=== PATIENT | female | born 1980 | race Caucasian/White ===

== ENCOUNTER 2022-02-02 19:08 | Emergency (ER) | payer BC, SELFPAY ==
[2022-02-02 19:22] VITALS: BP 139/87; PULSE 73; RESP 18; TEMP 36.5; O2SAT 98; BMI 45.4
--- NOTE | 2022-02-02 20:08 | ED_ITS ---
HPI - General Adult General Chief complaint: Chest Pain Stated complaint: Chest tightness and pain Time Seen by Provider: 02/02/22 20:01 History of Present Illness HPI narrative: Patient is a 41-year-old woman who comes in today with 1 day history of cough congestion general malaise and fatigue. She had COVID-19 approximately a month ago and made a full recovery after taking 3 days of Paxlovid. She describes no fevers no chills no hemoptysis no change in her bowel or bladder. Related Data Home Medications Medication Instructions Recorded Confirmed Claritin 02/02/22 pantoprazole 40 mg tablet,delayed mg PO 02/02/22 release Allergies Allergy/AdvReac Type Severity Reaction Status Date / Time barium sulfate Allergy Anaphylaxis Verified 02/02/22 19:27 vicodin Allergy Uncoded 02/02/22 19:27 Review of Systems Status of ROS: Reports: 10 or more systems reviewed and unremarkable except as noted in History and below PFSH PFS Social History Smoking Status: Never smoker How often do you have a drink containing alcohol: 2-4 times a month AUDIT-C Alcohol total score: 2 Non-prescribed substance use: denies use Exam Narrative: Exam Narrative: EXAM GENERAL: Patient appears comfortable and well. EYES: No scleral icterus. ENT: Tympanic membranes and oropharynx normal. THYROID: no thyroid nodules or thyromegaly. LYMPH: No supraclavicular or cervical lymphadenopathy. SKIN: Visible skin seen during exam normal or with benign process only. EXT: No dependent lower extremity pedal edema. HEART: Regular rate and rhythm with no murmurs, rubs, or gallops. LUNGS: Clear to auscultation bilaterally with no crackles or wheezes. ABD: Soft, non tender, non distended. PSYCH: Good eye contact, speech is not pressured. Const: Vital Signs, click to edit/add: Vital Signs - 24 hr 02/02/22 19:22 Temperature 97.7 F Pulse Rate [Left P ulse Oximeter] 73 Respiratory Rate 18 Blood Pressure [Ri ght Forearm] 139/87 Pulse Oximetry 98 Oxygen Delivery Me thod Room Air Course Course Hospital Course: COVID test collected. Will be letting her know those results. Meantime we have diagnosed with bronchitis a plan to discharge her to home with outpatient follow-up on his Z-Perez. Vital Signs Vital signs: Initial Vital Signs Temperature 97.7 F 02/02/22 19:22 Temperature Source Temporal Artery Scan 02/02/22 19:22 Pulse Rate 73 02/02/22 19:22 Respiratory Rate 18 02/02/22 19:22 Blood Pressure 139/87 02/02/22 19:22 Blood Pressure Mean 104 02/02/22 19:22 Blood Pressure Position Sitting 02/02/22 19:22 Pulse Oximetry 98 02/02/22 19:22 Oxygen Delivery Method 02/02/22 19:22 Vital Signs Temperature 97.7 F 02/02/22 19:22 Pulse Rate 73 02/02/22 19:22 Respiratory Rate 18 02/02/22 19:22 Blood Pressure 139/87 02/02/22 19:22 Pulse Oximetry 98 02/02/22 19:22 Oxygen Delivery Method 02/02/22 19:22 Temperature 97.7 F 02/02/22 19:22 Pulse Rate 73 02/02/22 19:22 Respiratory Rate 18 02/02/22 19:22 Blood Pressure 139/87 02/02/22 19:22 Pulse Oximetry 98 02/02/22 19:22 Oxygen Delivery Method 02/02/22 19:22 Medical Decision Making MDM Narrative Medical decision making narrative: Differential diagnosis includes bronchitis versus pneumonia versus COVID-19. I think that is unlikely that she has pneumonia due to her lack of hypoxia and fever. Discharge Plan Discharge Clinical Impression: Bronchitis Patient Disposition: Home, Self-Care Condition: Stable Instructions: Acute Bronchitis (ED) Additional Instructions: Z pack and albuterol as directed Activity Level: No Restrictions Discharge Diet: Regular Prescriptions: No Action pantoprazole 40 mg tablet,delayed release (DR/EC) PO Claritin Stand Alone Forms: Disconnect Info Instructions
[2022-02-02 21:31] LABS: SARS PCR* Negative SARS-CoV-2 (Negative)
== END 2022-02-02 20:41 | disposition home or self-care (01) ==
LOC: ED 20:30
PROVIDERS: Emergency Provider Internal Medicine
DX: J42 Unspecified chronic bronchitis (principal)
CPT/HCPCS: 87635; 99283; 99284

== ENCOUNTER 2022-04-02 10:11 | Day surgery (SDC) | payer BC, SELFPAY ==
[2022-04-02] VITALS (11 sets, daily range): BP systolic 102–126; BP diastolic 65–92; PULSE 63–82; RESP 16; TEMP 36.1–36.6; O2SAT 95–99; BMI 46.0
[2022-04-02] MEDS: OXYMETAZOLINE 0.05% NASAL SPRAY 2 SPRAY NOSTRIL-B (10:31)
[2022-04-02] MEDS: MUPIROCIN 1 GM PACKET 1 APPLIC TOPICAL (10:53)
[2022-04-02] MEDS: SCOPOLAMINE 1 MG/3 DAY PATCH 1 PATCH TRANSDERMA (10:57)
[2022-04-02] MEDS: LACTATED RINGERS 1000 ML 1,000 ML 100 ML IV (11:00)
[2022-04-02] MEDS: SODIUM CHLORIDE 0.9 % (FLUSH) 10 ML SYRINGE IVF (11:38)
[2022-04-02] MEDS: COCAINE HCL 4 % 4 ML SOLUTION NOSTRIL-B (11:54)
[2022-04-02] MEDS: BUPIVACAINE 0.5%/EPINEPHRINE 0.9 MG (30.9 ML) INJECTION (11:54)
--- NOTE | 2022-04-02 12:20 | W.PM.ENTPROC ---
Procedure Note Date of procedure: 04/02/22 Procedure: Preoperative diagnosis nasal obstruction, nasal headache, bilateral middle turbinate joanie bullosa, deviated septum, inferior turbinate hypertrophy. Postoperative diagnosis same Procedure nasal septoplasty, submucous partial resection inferior turbinates, endoscopic partial resection bilateral middle turbinate joanie bullosa. Under general endotracheal anesthesia patient was prepped and draped in usual fashion. The nose was decongested with cocaine pledgets and injected. The septal deflection was left area 4. An incision was made in mucosa anterior to the deflection and mucosa overlying the deflection was elevated. The Trev dissector was used to cut through the cartilage and the mucosa on the opposite side was also elevated. Turbinate scissors was used to cut above and below the deflected area of septum. This piece of septal bone and cartilage was removed trimmed and returned to the intraseptal space. A stab incision was made anterior to the right inferior turbinate a tunnel created with a Trev dissector. The joanie bone was outfractured and a conservative anterior submucous resection performed with a talk I she forceps. The Coblation Wand used for hemostasis and also to cauterize intramurally along the inferior 10%. This was repeated on the left side in identical fashion. The remainder procedure was done with the available assistance of a 0 degree endoscope. The lobe right middle turbinate joanie was incised along its lateral aspect and a tunnel created with a Trev dissector. The joanie bone was then infractured and crushed with the Rich forceps. This was repeated on the left side in identical fashion. A Merocel pack was trimmed lengthwise coated in Bactroban and placed beneath the middle meatus on each side. The patient was extubated the operating room and taken recovery in satisfactory condition. Blood loss was less than 25 mL. There were no complications. Surgeon: Ranjan Paredes MD
--- NOTE | 2022-04-02 12:26 | W.ANESCHARGE ---
Anesthesia Charges Start Date/Time Anesthesia Start Date: 04/02/22 Anesthesia Start Time: 11:46 Stop Date/Time Anesthesia Stop Date: 04/02/22 Anesthesia Stop Time: 12:20 Summary Emergency: No
[2022-04-02] MEDS: ACETAMINOPHEN 325 MG TABLET PO (13:15)
[2022-04-02] MEDS: IBUPROFEN 200 MG TABLET PO (13:15)
[2022-04-02] MEDS: OXYCODONE 5 MG TABLET PO (13:16)
--- NOTE | 2022-04-02 13:30 | W.ANESCHARGE ---
Anesthesia Charges Start Date/Time Anesthesia Start Date: 04/02/22 Anesthesia Start Time: 11:46 Stop Date/Time Anesthesia Stop Date: 04/02/22 Anesthesia Stop Time: 12:20 Summary Emergency: No
== END 2022-04-02 14:05 | disposition home or self-care (01) ==
PROVIDERS: PCP Physician Assistant Medical; Visit Provider Otolaryngology
PROC: (CPT 31231; principal; 2022-04-02 11:15)
DX: J34.2 Deviated nasal septum (principal); J34.3 Hypertrophy of nasal turbinates; R51.9 Headache, unspecified; J34.89 Other specified disorders of nose and nasal sinuses
CPT/HCPCS: 30520; 30140; 31240; 00160; A9270; J0330; J1100; J2250; J2405; J2704; J3010; J7120

== ENCOUNTER 2022-06-02 17:47 | Emergency (ER) | payer BC, SELFPAY ==
[2022-06-02 18:00] VITALS: BP 143/91; PULSE 56; PULSE 58; RESP 20; TEMP 36.5; O2SAT 100; O2SAT 99; BMI 45.4
--- NOTE | 2022-06-02 18:09 | CRLHL7_ITS ---
For Patients: As a result of the Century Cures Act, medical imaging exams and procedure reports are released immediately into your electronic medical record. You may view this report before your referring provider. If you have questions, please contact your health care provider. INDICATION: Shortness of breath. TECHNIQUE: Chest 2 views. COMPARISON: None. FINDINGS: Cardiovascular and mediastinum: Heart size and vasculature are normal in caliber and appearance. Lungs and pleural spaces: The lungs are clear. No pleural effusion or pneumothorax. Bones and soft tissues: No significant findings. IMPRESSION: No evidence of an acute pulmonary process. Dictated by Jp Wells MD @ 06/02/2022 6:44:32 PM (Electronically Signed)
[2022-06-02 18:30] VITALS: BP 150/88; PULSE 58; RESP 20; O2SAT 99
[2022-06-02 18:31] VITALS: BP 150/88; PULSE 56; RESP 20; O2SAT 100
[2022-06-02 18:38] LABS: Lactate* 1.1 mmol/L (0.5-1.9)
[2022-06-02 18:39] LABS: Basophils Absolute Auto 0.02 K/uL (0.00-0.30); Basophils Percent Auto 0.2 % (0.0-3.0); Eosinophils Percent Auto 1.1 % (0.0-7.0); Hematocrit 41.1 % (33.0-51.0); Hemoglobin* 13.9 gm/dL (12.0-16.0); Immature Granulocytes Abs Auto 0.01 K/uL (0.00-0.30); Immature Granulocytes Pct Auto 0.1 %; Lymphocytes Percent Auto 17.3 % (20-44); Mean Corpuscular HGB Conc 34 gm/dL (32-36); Mean Corpuscular Hemoglobin 31 pg (26-34); Mean Corpuscular Volume 92 fL (80-100); Monocytes Percent Auto 4.6 % (0.0-11.0); Neutrophils Percent Auto 76.7 % (42.0-72.0); Platelet Count* 258 K/uL (140-440); RDW Coefficient of Variation % 12.9 % (11.5-15.5); Red Blood Count 4.45 m/uL (4.00-5.20); White Blood Count* 9.41 K/uL (4.50-11.00)
[2022-06-02 18:42] LABS: Slide Review Reflex No
[2022-06-02 18:46] LABS: Appearance Urine Clear (Clear); Bilirubin Urine Negative (Negative); Blood Urine Negative (Negative); Color Urine Yellow (Yellow); Glucose Urine Negative (Negative); Ketones Urine Negative (Negative); Leukocyte Esterase Urine Negative (Negative); Nitrite Urine Negative (Negative); Protein Urine Negative (Negative); Urobilinogen Urine 0.2 (0.2-1.0); pH Urine 7.5 (5.0-8.5)
[2022-06-02 19:00] LABS: Albumin* 4.7 g/dL (3.3-5.0)
[2022-06-02] MEDS: 0.9 % SODIUM CHLORIDE 1000 ml 1,000 ML IV (19:00)
[2022-06-02 19:01] LABS: Chloride* 105 mmol/L (96-114); Potassium* 3.7 mmol/L (3.6-5.1); Sodium* 140 mmol/L (135-149)
[2022-06-02 19:03] LABS: Alanine Aminotransferase* 21 U/L (4-35); Alkaline Phosphatase* 102 U/L (40-150); Aspartate Amino Transferase* 20 U/L (12-35); Bilirubin Direct* 0.2 mg/dL (0.0-0.5); Bilirubin Total* 0.5 mg/dL (0.1-1.5); Total Protein* 7.7 g/dL (6.0-8.3)
[2022-06-02 19:04] LABS: Blood Urea Nitrogen* 11 mg/dL (5-24); Carbon Dioxide* 25 mmol/L (20-32); Creatinine* 0.9 mg/dL (0.5-1.5); Est. Creatinine Clearance* 79.99; Estimated Glomerular Filt Rate 82 ml/min
[2022-06-02 19:05] VITALS: BP 132/82; BP 154/83; BP 157/98; PULSE 54; PULSE 56; PULSE 63
[2022-06-02 19:05] LABS: Calcium* 9.2 mg/dL (8.4-10.6); Glucose* 111 mg/dL (60-115)
[2022-06-02 19:09] LABS: RBC Urine 0-2 (0-2); WBC Urine 0-2 (0-5)
[2022-06-02 19:19] LABS: Troponin I* < 0.01 ng/mL (0.01-0.04)
--- NOTE | 2022-06-02 19:22 | ED.GENADULT ---
HPI - General Adult General Chief complaint: Dizziness/Vertigo Stated complaint: Light headed low bp Time Seen by Provider: 06/02/22 17:58 Source: patient Mode of arrival: ambulatory Limitations: no limitations History of Present Illness HPI narrative: 41-year-old female coming in today complaining of not feeling well. Patient was diagnosed with COVID-19 last month and subsequently developed bronchitis for which she was being treated for. She states that over the last several days she has developed a feeling of lightheadedness that comes and goes throughout the day. She has noticed that this comes when her pulse goes into the upper 50s and lower 60s. She tells me that her regular pulses in the upper 60s to low 70s. These sensations, multiple times per day, lasts several seconds and then disappear. She feels off balance when they occur. They can occur while standing or sitting. The other day she was very concerned that her pulse was too low so she went for a brisk walk in the hallway at work, her pulse went up to 103. Despite her pulse going up at that time she still had several sensations of feeling lightheaded. She wears a Fitbit and closely monitors her pulse at all times. She denies any nausea or vomiting. No chest pain. She denies any shortness of breath, headache, blurry vision or changes in her hearing. She denies any diarrhea. No urinary symptoms such as increased frequency urgency or dysuria. She states that she does not exercise regularly. No changes in her sleeping habits. She denies any vertiginous symptoms. No focal neurologic deficits. No changes in medications. She takes daily pantoprazole and loratadine. Related Data Home Medications Medication Instructions Recorded Confirmed pantoprazole 40 mg tablet,delayed 40 mg PO 02/02/22 05/26/22 release loratadine 10 mg tablet (Claritin) 10 mg PO QDAY 03/31/22 05/26/22 Previous Rx's Medication Instructions Recorded cephalexin 250 mg capsule 250 mg PO TID #15 caps 04/02/22 ondansetron 4 mg disintegrating 4 mg PO Q8H #10 tabs 04/02/22 tablet oxycodone 5 mg tablet 5 mg PO Q4H PRN pain #30 tabs 04/02/22 azithromycin 250 mg tablet See Rx Instructions PO .COMPLEX #6 05/26/22 tabs Allergies Allergy/AdvReac Type Severity Reaction Status Date / Time barium sulfate Allergy Intermediate Anaphylaxis Verified 06/02/22 17:59 hydrocodone Allergy Mild severe Verified 06/02/22 17:59 nausea, vomiting Review of Systems Status of ROS: Reports: 10 or more systems reviewed and unremarkable except as noted in History and below [facility] Medical History Adverse effect of drug Endometriosis (04/12/11) Infection due to severe acute respiratory syndrome coronavirus 2 (SARS-CoV-2) Surgical History History of cholecystectomy (04/12/11) History of total abdominal hysterectomy (04/12/11) Hx of section Hx of shoulder surgery Social History Smoking Status: Never smoker Do you use any of these nicotine containing products: None Second hand tobacco smoke exposure: No How often do you have a drink containing alcohol: 2-4 times a month How many standard drinks containing alcohol do you have on a typical day: 1 or 2 How often do you have six or more drinks on one occasion: Never AUDIT-C Alcohol total score: 2 Non-prescribed substance use: denies use Caffeine: Yes service: No Exam Narrative: Exam Narrative: Obese patient in no acute distress. Alert and oriented. Answers questions appropriately. Mood and affect are appropriate. Thoughts are goal oriented and rational. No tangential or magical thinking noted. Patient speaks in full sentences without needing to catch her breath. Patient is clearly very anxious about her symptoms. HEENT: Normocephalic atraumatic. Pupils are equally round reactive to light. Extraocular muscles are intact. Conjunctivae are moist without any icterus noted. Moist mucous membranes. Posterior pharynx is normal. Neck is soft without any lymphadenopathy or thyromegaly. No masses are appreciated. Cardiovascular: Heart is regular rate and rhythm S1 and S2 are present without any murmurs. Lungs: Clear to auscultation bilaterally no wheezes rhonchi or rales are appreciated. Patient takes deep breaths without any discomfort. Abdomen: Soft and nontender nondistended with normal bowel sounds. No guarding or rebound. No masses or organomegaly appreciated. Extremities: Bilateral lower extremities are without edema. Normal DP and PT pulses. Skin: Well perfused without any obvious rashes. Const: Vital Signs, click to edit/add: Vital Signs - 24 hr 06/02/22 18:00 06/02/22 18:00 06/02/22 18:31 Temperature 97.7 F Pulse Rate [Pulse Oximeter] 56 L 56 L Pulse Rate [orthos tatic lying Pulse Oximeter] Pulse Rate [orthos tatic sitting Puls e Oximeter] Pulse Rate [orthos tatic standing Pul se Oximeter] Respiratory Rate 20 20 Blood Pressure [Le ft Upper Arm] 150/88 H Blood Pressure [or thostatic lying Le ft Arm] Blood Pressure [or thostatic sitting Left Arm] Blood Pressure [or thostatic standing Left Arm] Pulse Oximetry 100 100 100 Oxygen Delivery Me thod Room Air Room Air 06/02/22 18:00 06/02/22 19:05 06/02/22 18:30 Temperature Pulse Rate [Pulse Oximeter] 58 L 58 L Pulse Rate [orthos tatic lying Pulse Oximeter] 56 L Pulse Rate [orthos tatic sitting Puls e Oximeter] 54 L Pulse Rate [orthos tatic standing Pul se Oximeter] 63 Respiratory Rate 20 Blood Pressure [Le ft Upper Arm] 143/91 H 150/88 H Blood Pressure [or thostatic lying Le ft Arm] 154/83 H Blood Pressure [or thostatic sitting Left Arm] 157/98 H Blood Pressure [or thostatic standing Left Arm] 132/82 Pulse Oximetry 99 99 Oxygen Delivery Me thod Room Air Course Course Hospital Course: EKG, read by me, shows sinus bradycardia with a pulse of 58. IV was inserted labs and were drawn. Workup was entirely unremarkable. While she was here patient's pulse ranged from 45-60-she was asymptomatic while she was here. No evidence of orthostatic hypotension. Vital Signs Vital signs: Initial Vital Signs Temperature 97.7 F 06/02/22 18:00 Temperature Source Temporal Artery Scan 06/02/22 18:00 Pulse Rate 56 L 06/02/22 18:00 Pulse Rhythm 06/02/22 18:00 Respiratory Rate 20 06/02/22 18:00 Respiratory Depth Normal 06/02/22 18:00 Blood Pressure 143/91 H 06/02/22 18:00 Blood Pressure Mean 108 06/02/22 18:00 Blood Pressure Position Supine 06/02/22 18:00 Pulse Oximetry 100 12/07/22 18:00 Oxygen Delivery Method 06/02/22 18:00 Vital Signs Temperature 97.7 F 06/02/22 18:00 Pulse Rate 56 L 06/02/22 18:00 Respiratory Rate 20 06/02/22 18:00 Blood Pressure 143/91 H 06/02/22 18:00 Pulse Oximetry 100 06/02/22 18:00 Oxygen Delivery Method 06/02/22 18:00 Temperature 97.7 F 06/02/22 18:00 Pulse Rate 56 L 06/02/22 19:05 Respiratory Rate 20 06/02/22 18:31 Blood Pressure 154/83 H 06/02/22 19:05 Pulse Oximetry 100 06/02/22 18:31 Oxygen Delivery Method 06/02/22 18:31 Medical Decision Making MDM Narrative Medical decision making narrative: 41-year-old female with episodes of brief dizziness calmer episodes of bradycardia. At this point I do not recommend further workup in the emergency room. I do recommend she follow up with her primary care provider to discuss next steps if any. We discussed the possibility of a Holter monitor, again I do not feel this is an emergency at this time. I do recommend she return to the ER if symptoms get worse. Patient was agreeable with this and had no other questions. Lab Data Lab results reviewed: Yes I reviewed the patient's lab results Labs: Lab Results 06/02/22 06/02/22 06/02/22 Range/Units 18:10 18:22 18:22 WBC 9.41 (4.50-11.00) K/uL RBC 4.45 (4.00-5.20) m/uL Hgb 13.9 (12.0-16.0) gm/dL Hct 41.1 (33.0-51.0) % MCV 92 (80-100) fL MCH 31 (26-34) pg MCHC 34 (32-36) gm/dL RDW Coeff of Kylah 12.9 (11.5-15.5) % Plt Count 258 (140-440) K/uL Neut % (Auto) 76.7 H (42.0-72.0) % Lymph % (Auto) 17.3 L (20-44) % [place] % (Auto) 4.6 (0.0-11.0) % Eos % (Auto) 1.1 (0.0-7.0) % Baso % (Auto) 0.2 (0.0-3.0) % Neut # (Auto) 7.20 H (1.7-7.0) K/uL Lymph # (Auto) 1.60 (0.90-2.90) K/uL [place] # (Auto) 0.40 (0.00-0.90) K/UL Eos # (Auto) 0.10 (0.00-0.50) K/uL Baso # (Auto) 0.02 (0.00-0.30) K/uL Abs Immat Gran (auto) 0.01 (0.00-0.30) K/uL Imm/Tot Granulo (auto) 0.1 % D-Dimer Quant (PE/DVT) (0.00-0.50) ug/ml Sodium 140 (135-149) mmol/L Potassium 3.7 (3.6-5.1) mmol/L Chloride 105 (96-114) mmol/L Carbon Dioxide 25 (20-32) mmol/L BUN 11 (5-24) mg/dL Creatinine 0.9 (0.5-1.5) mg/dL Estimated Creat Clear 79.99 Estimated GFR 82 ml/min Glucose 111 (60-115) mg/dL Lactate (0.5-1.9) mmol/L Calcium 9.2 (8.4-10.6) mg/dL Total Bilirubin (0.1-1.5) mg/dL Direct Bilirubin (0.0-0.5) mg/dL AST (12-35) U/L ALT (4-35) U/L Alkaline Phosphatase (40-150) U/L Troponin I (0.01-0.04) ng/mL C-Reactive Protein (0.5-1.0) mg/dL Total Protein (6.0-8.3) g/dL Albumin (3.3-5.0) g/dL Urine Color Yellow (Yellow) Urine Appearance Clear (Clear) Urine pH 7.5 (5.0-8.5) Ur Specific [place] 1.010 (1.000-1.030) Urine Protein Negative (Negative) Urine Glucose (UA) Negative (Negative) Urine Ketones Negative (Negative) Urine Blood Negative (Negative) Urine Nitrite Negative (Negative) Urine Bilirubin Negative (Negative) Urine Urobilinogen 0.2 (0.2-1.0) Ur Leukocyte Esterase Negative (Negative) Urine RBC 0-2 (0-2) Urine WBC 0-2 (0-5) Ur Squamous Epith Cells None (None-Few) Urine Bacteria None (None) 06/02/22 06/02/22 06/02/22 Range/Units 18:22 18:22 18:22 WBC (4.50-11.00) K/uL RBC (4.00-5.20) m/uL Hgb (12.0-16.0) gm/dL Hct (33.0-51.0) % MCV (80-100) fL MCH (26-34) pg MCHC (32-36) gm/dL RDW Coeff of Kylah (11.5-15.5) % Plt Count (140-440) K/uL Neut % (Auto) (42.0-72.0) % Lymph % (Auto) (20-44) % [place] % (Auto) (0.0-11.0) % Eos % (Auto) (0.0-7.0) % Baso % (Auto) (0.0-3.0) % Neut # (Auto) (1.7-7.0) K/uL Lymph # (Auto) (0.90-2.90) K/uL [place] # (Auto) (0.00-0.90) K/UL Eos # (Auto) (0.00-0.50) K/uL Baso # (Auto) (0.00-0.30) K/uL Abs Immat Gran (auto) (0.00-0.30) K/uL Imm/Tot Granulo (auto) % D-Dimer Quant (PE/DVT) < 0.27 (0.00-0.50) ug/ml Sodium (135-149) mmol/L Potassium (3.6-5.1) mmol/L Chloride (96-114) mmol/L Carbon Dioxide (20-32) mmol/L BUN (5-24) mg/dL Creatinine (0.5-1.5) mg/dL Estimated Creat Clear Estimated GFR ml/min Glucose (60-115) mg/dL Lactate 1.1 (0.5-1.9) mmol/L Calcium (8.4-10.6) mg/dL Total Bilirubin 0.5 (0.1-1.5) mg/dL Direct Bilirubin 0.2 (0.0-0.5) mg/dL AST 20 (12-35) U/L ALT 21 (4-35) U/L Alkaline Phosphatase 102 (40-150) U/L Troponin I < 0.01 L (0.01-0.04) ng/mL C-Reactive Protein 1.0 (0.5-1.0) mg/dL Total Protein 7.7 (6.0-8.3) g/dL Albumin 4.7 (3.3-5.0) g/dL Urine Color (Yellow) Urine Appearance (Clear) Urine pH (5.0-8.5) Ur Specific [place] (1.000-1.030) Urine Protein (Negative) Urine Glucose (UA) (Negative) Urine Ketones (Negative) Urine Blood (Negative) Urine Nitrite (Negative) Urine Bilirubin (Negative) Urine Urobilinogen (0.2-1.0) Ur Leukocyte Esterase (Negative) Urine RBC (0-2) Urine WBC (0-5) Ur Squamous Epith Cells (None-Few) Urine Bacteria (None) Imaging Data Chest x-ray: Attestation: I have reviewed the pertinent imaging results. Radiologist's impression: Chest 2 views. COMPARISON: None. FINDINGS: Cardiovascular and mediastinum:? Heart size and vasculature are normal in caliber and appearance.? Lungs and pleural spaces:? The lungs are clear. No pleural effusion or pneumothorax. Bones and soft tissues:? No significant findings. IMPRESSION: No evidence of an acute pulmonary process. ECG Data Attestation: I personally reviewed and interpreted this ECG as follows: (Sinus bradycardia, pulse 58) Discharge Plan Discharge Clinical Impression: Dizziness, Bradycardia Patient Disposition: Home, Self-Care Condition: Stable Additional Instructions: No life-threatening conditions or found on your workup today. I do recommend you follow-up with your primary care provider to discuss whether or not you should have a Holter monitor (heart monitor) placed. Return to the ER if you feel like things are getting worse. Prescriptions: No Action loratadine [Claritin] 10 mg tablet 10 mg PO QDAY azithromycin 250 mg tablet See Rx Instructions PO .COMPLEX Qty: 6 0RF Rx Instructions: For 250 mg dose pack: take 500 mg today (day 1), then 250 mg for 4 days (days 2-5) PO pantoprazole 40 mg tablet,delayed release (DR/EC) 40 mg PO cephalexin 250 mg capsule 250 mg PO TID Qty: 15 0RF ondansetron 4 mg tablet,disintegrating 4 mg PO Q8H Qty: 10 0RF oxycodone 5 mg tablet 5 mg PO Q4H PRN (Reason: pain) Qty: 30 0RF Follow Up/Referrals: Lety Gaines PA-C [Primary Care Provider] - Stand Alone Forms: [employer]ealth Info Instructions
[2022-06-02 19:27] LABS: D Dimer Quantitative* < 0.27 ug/ml (0.00-0.50)
[2022-06-02 20:10] VITALS: BP 147/91; PULSE 50; RESP 16; O2SAT 99
[2022-06-02 20:58] LABS: Thyroid Stimulating Hormone* 0.826 uIU/mL (0.270-4.20)
== END 2022-06-02 20:20 | disposition home or self-care (01) ==
PROVIDERS: Emergency Provider Family Medicine; PCP Physician Assistant Medical
DX: R42 Dizziness and giddiness (principal); R00.1 Bradycardia, unspecified
CPT/HCPCS: 36415; 71046; 80048; 80076; 81001; 83605; 84443; 84484; 85025; 85379; 86140; 87086; 93005; 94761; 96360; 99284; J7030

== ENCOUNTER 2022-06-16 22:34 | Emergency (ER) | payer BC, SELFPAY ==
[2022-06-16] VITALS (11 sets, daily range): BP systolic 124–179; BP diastolic 85–94; PULSE 76–89; TEMP 35.6; O2SAT 97–99; BMI 45.9
[2022-06-16] MEDS: 0.9 % SODIUM CHLORIDE 1000 ml 1,000 ML IV (23:45)
[2022-06-16 23:46] LABS: Basophils Absolute Auto 0.03 K/uL (0.00-0.30); Basophils Percent Auto 0.3 % (0.0-3.0); Eosinophils Absolute Auto 0.29 K/uL (0.00-0.50); Hematocrit 41.3 % (33.0-51.0); Hemoglobin* 13.6 gm/dL (12.0-16.0); Immature Granulocytes Abs Auto 0.01 K/uL (0.00-0.30); Immature Granulocytes Pct Auto 0.1 %; Lymphocytes Percent Auto 15.1 % (20-44); Mean Corpuscular HGB Conc 33 gm/dL (32-36); Mean Corpuscular Hemoglobin 31 pg (26-34); Mean Corpuscular Volume 94 fL (80-100); Monocytes Percent Auto 5.3 % (0.0-11.0); Neutrophils Percent Auto 76.2 % (42.0-72.0); Platelet Count* 272 K/uL (140-440); RDW Coefficient of Variation % 12.9 % (11.5-15.5); Red Blood Count 4.38 m/uL (4.00-5.20); White Blood Count* 9.64 K/uL (4.50-11.00)
[2022-06-16 23:49] LABS: Appearance Urine Clear (Clear); Bilirubin Urine Negative (Negative); Blood Urine Negative (Negative); Color Urine Yellow (Yellow); Glucose Urine Negative (Negative); Ketones Urine Negative (Negative); Leukocyte Esterase Urine Negative (Negative); Nitrite Urine Negative (Negative); Protein Urine Negative (Negative); Slide Review Reflex No; Urobilinogen Urine 0.2 (0.2-1.0)
[2022-06-16 23:57] LABS: Other Sediment Urine YEAST; RBC Urine 0-2 (0-2); Squamous Epithelial Cell Urine Moderate (None-Few); WBC Urine 0-2 (0-5)
[2022-06-16 23:58] LABS: Albumin* 4.5 g/dL (3.3-5.0)
[2022-06-16 23:59] LABS: Chloride* 105 mmol/L (96-114); Potassium* 3.7 mmol/L (3.6-5.1); Sodium* 138 mmol/L (135-149)
[2022-06-17] VITALS: PULSE 70; O2SAT 97
[2022-06-17 00:01] VITALS: BP 124/85; PULSE 82; O2SAT 96
[2022-06-17 00:01] LABS: Troponin, Point-of-Care* 0.07 ng/ml (0.01-0.04)
[2022-06-17 00:02] VITALS: PULSE 68; O2SAT 99
[2022-06-17 00:04] LABS: Alanine Aminotransferase* 20 U/L (4-35); Alkaline Phosphatase* 97 U/L (40-150); Aspartate Amino Transferase* 19 U/L (12-35); Bilirubin Direct* 0.2 mg/dL (0.0-0.5); Bilirubin Total* 0.3 mg/dL (0.1-1.5); Blood Urea Nitrogen* 15 mg/dL (5-24); Calcium* 8.8 mg/dL (8.4-10.6); Carbon Dioxide* 26 mmol/L (20-32); Glucose* 132 mg/dL (60-115); Total Protein* 7.4 g/dL (6.0-8.3)
[2022-06-17 00:15] LABS: Creatinine* 0.8 mg/dL (0.5-1.5); D Dimer Quantitative* < 0.27 ug/ml (0.00-0.50); Est. Creatinine Clearance* 89.08; Estimated Glomerular Filt Rate 94 ml/min; Ethanol* < 0.01 % (0.01-0.03); NT Pro B Type NatriureticPept* < 20 pg/mL; Troponin I* < 0.01 ng/mL (0.01-0.04)
[2022-06-17 00:26] VITALS: PULSE 71; O2SAT 98
[2022-06-17 00:30] VITALS: PULSE 67; O2SAT 98
[2022-06-17 00:31] VITALS: BP 141/96; PULSE 71; O2SAT 98
[2022-06-17] MEDS: LORazepam 2 MG/ML inj 0.5 MG IVP (00:37)
--- NOTE | 2022-06-17 09:29 | ED_ITS ---
HPI - General Adult General Chief complaint: High Blood Pressure Stated complaint: blood pressure is 157/102, pain in left arm Time Seen by Provider: 06/16/22 23:00 History of Present Illness HPI narrative: 42-year-old woman presenting to the emergency department with concern of high blood pressure. Accompanied by significant other. Apparently periodically it has been elevated but no treatment initiated. Today was having some chest discomfort and recently also couple episodes of 20 minutes of pain inside of her left arm. Acknowledges may have been worsened by blood pressure checks. Was feeling like her heart was beating really fast or hard. While sitting in the waiting room today had transiently odd vision. recently being evaluated for bradycardia with a Holter monitor/ ZIO patch which has been removed after what sounds like 48 hours of monitoring. just generally feeling unwell. Not really short of breath. Was exercising on treadmill today. subsequently was also experiencing a lot of belching which isn't necessarily unusual. Feeling lightheaded. No known cardiovascular disease. Has struggled a little since having had COVID in October of this year; she describes waves of like cool menthol through her body periodically. Gestures from her head down. Does have a stress test scheduled for the week of June. Related Data Home Medications Medication Instructions Recorded Confirmed pantoprazole 40 mg tablet,delayed 40 mg PO 02/02/22 06/14/22 release cetirizine 10 mg capsule (Zyrtec) 40 mg PO QDAY PRN 06/14/22 06/14/22 Allergies Allergy/AdvReac Type Severity Reaction Status Date / Time barium sulfate Allergy Intermediate Anaphylaxis Verified 06/14/22 07:55 hydrocodone Allergy Mild severe Verified 06/14/22 07:55 nausea, vomiting Review of Systems Status of ROS: Reports: 10 or more systems reviewed and unremarkable except as noted in History and below [facility] Medical History Adverse effect of drug Chest pain Endometriosis (04/12/11) Infection due to severe acute respiratory syndrome coronavirus 2 (SARS-CoV-2) Surgical History History of cholecystectomy (04/12/11) History of total abdominal hysterectomy (04/12/11) Hx of section Hx of shoulder surgery Social History Smoking Status: Never smoker Do you use any of these nicotine containing products: None Second hand tobacco smoke exposure: No How often do you have a drink containing alcohol: 2-4 times a month How many standard drinks containing alcohol do you have on a typical day: 1 or 2 How often do you have six or more drinks on one occasion: Never AUDIT-C Alcohol total score: 2 Non-prescribed substance use: denies use Caffeine: Yes service: No Exam Narrative: Exam Narrative: Pleasant. Appears to be mildly anxious. Breathing easily. Speaking easily. Cranial nerves 2-12 look to be intact. Lungs are clear cardiovascular with regular rate and rhythm no murmur rub or gallop identified. Abdomen is overweight soft nontender. She is moving all extremities without difficulty. Well perfused peripherally. Oropharynx is moist. There is a little discomfort to palpation in the mid anterior chest midsternal area. Had describe some discomfort in the chest prior under the left breast. No reproducible tenderness here now. Extremities are without edema. Const: Vital Signs, click to edit/add: Vital Signs - 24 hr 06/16/22 22:40 06/16/22 23:37 06/16/22 23:22 Temperature 96.0 F L Pulse Rate Pulse Rate [Left P ulse Oximeter] 86 Pulse Rate [orthos tatic lying Right] 78 Pulse Rate [orthos tatic sitting Righ t Pulse Oximeter] 76 Pulse Rate [orthos tatic standing Rig ht Pulse Oximeter] 88 Blood Pressure Blood Pressure [Ri ght Upper Arm] 179/87 H Blood Pressure [or thostatic lying Le ft Arm] 125/85 Blood Pressure [or thostatic sitting Left Arm] 130/86 Blood Pressure [or thostatic standing Left Arm] 127/92 H Pulse Oximetry 99 97 Oxygen Delivery Me thod Room Air 06/16/22 23:07 06/16/22 23:11 06/16/22 23:12 Temperature Pulse Rate 85 89 85 Pulse Rate [Left P ulse Oximeter] Pulse Rate [orthos tatic lying Right] Pulse Rate [orthos tatic sitting Righ t Pulse Oximeter] Pulse Rate [orthos tatic standing Rig ht Pulse Oximeter] Blood Pressure 145/94 H Blood Pressure [Ri ght Upper Arm] Blood Pressure [or thostatic lying Le ft Arm] Blood Pressure [or thostatic sitting Left Arm] Blood Pressure [or thostatic standing Left Arm] Pulse Oximetry 98 97 99 Oxygen Delivery Me thod 06/16/22 23:15 06/16/22 23:30 06/16/22 23:31 Temperature Pulse Rate 86 78 82 Pulse Rate [Left P ulse Oximeter] Pulse Rate [orthos tatic lying Right] Pulse Rate [orthos tatic sitting Righ t Pulse Oximeter] Pulse Rate [orthos tatic standing Rig ht Pulse Oximeter] Blood Pressure 124/94 H Blood Pressure [Ri ght Upper Arm] Blood Pressure [or thostatic lying Le ft Arm] Blood Pressure [or thostatic sitting Left Arm] Blood Pressure [or thostatic standing Left Arm] Pulse Oximetry 98 98 97 Oxygen Delivery Me thod 06/16/22 23:37 06/16/22 23:40 06/16/22 23:45 Temperature Pulse Rate 81 89 77 Pulse Rate [Left P ulse Oximeter] Pulse Rate [orthos tatic lying Right] Pulse Rate [orthos tatic sitting Righ t Pulse Oximeter] Pulse Rate [orthos tatic standing Rig ht Pulse Oximeter] Blood Pressure 125/85 127/92 H Blood Pressure [Ri ght Upper Arm] Blood Pressure [or thostatic lying Le ft Arm] Blood Pressure [or thostatic sitting Left Arm] Blood Pressure [or thostatic standing Left Arm] Pulse Oximetry 97 97 98 Oxygen Delivery Me thod 06/17/22 00:00 06/17/22 00:01 06/17/22 00:02 Temperature Pulse Rate 70 82 68 Pulse Rate [Left P ulse Oximeter] Pulse Rate [orthos tatic lying Right] Pulse Rate [orthos tatic sitting Righ t Pulse Oximeter] Pulse Rate [orthos tatic standing Rig ht Pulse Oximeter] Blood Pressure 124/85 Blood Pressure [Ri ght Upper Arm] Blood Pressure [or thostatic lying Le ft Arm] Blood Pressure [or thostatic sitting Left Arm] Blood Pressure [or thostatic standing Left Arm] Pulse Oximetry 97 96 99 Oxygen Delivery Me thod 06/17/22 00:26 06/17/22 00:30 06/17/22 00:31 Temperature Pulse Rate 71 67 71 Pulse Rate [Left P ulse Oximeter] Pulse Rate [orthos tatic lying Right] Pulse Rate [orthos tatic sitting Righ t Pulse Oximeter] Pulse Rate [orthos tatic standing Rig ht Pulse Oximeter] Blood Pressure 141/96 H Blood Pressure [Ri ght Upper Arm] Blood Pressure [or thostatic lying Le ft Arm] Blood Pressure [or thostatic sitting Left Arm] Blood Pressure [or thostatic standing Left Arm] Pulse Oximetry 98 98 98 Oxygen Delivery Me thod Course Vital Signs Vital signs: Initial Vital Signs Temperature 96.0 F L 06/16/22 22:40 Temperature Source Temporal Artery Scan 06/16/22 22:40 Pulse Rate 86 06/16/22 22:40 Blood Pressure 179/87 H 06/16/22 22:40 Blood Pressure Mean 117 06/16/22 22:40 Blood Pressure Position Sitting 06/16/22 22:40 Pulse Oximetry 99 06/16/22 22:40 Oxygen Delivery Method 06/16/22 22:40 Vital Signs Temperature 96.0 F L 06/16/22 22:40 Pulse Rate 86 06/16/22 22:40 Blood Pressure 179/87 H 06/16/22 22:40 Pulse Oximetry 99 06/16/22 22:40 Oxygen Delivery Method 06/16/22 22:40 Temperature 96.0 F L 06/16/22 22:40 Pulse Rate 71 06/17/22 00:31 Blood Pressure 141/96 H 06/17/22 00:31 Pulse Oximetry 98 06/17/22 00:31 Oxygen Delivery Method 06/16/22 22:40 Medical Decision Making MDM Narrative Medical decision making narrative: We do check orthostatics which she admits does not exacerbate her symptoms. They are objectively normal as well. I discussed that I think the workup will be essentially negative From a cardiac perspective. I do think though some value from monitoring on hospital monitor. After discussion though I also believe that there will be some therapeutic value to laboratory testing I did does not sound as though extensive has been done.. during orthostatics blood pressures were 120s over 80s. I think this is overall reassuring. did receive a L of normal saline. Reviewing normal labs do offer a dose of lorazepam for what I perceive as some smoldering anxiety. This does seem to help Ms. Choi's remaining symptoms Lab Data Lab results reviewed: Yes I reviewed the patient's lab results Labs: Lab Results 06/16/22 06/16/22 06/16/22 Range/Units 23:22 23:35 23:35 WBC 9.64 (4.50-11.00) K/uL RBC 4.38 (4.00-5.20) m/uL Hgb 13.6 (12.0-16.0) gm/dL Hct 41.3 (33.0-51.0) % MCV 94 (80-100) fL MCH 31 (26-34) pg MCHC 33 (32-36) gm/dL RDW Coeff of Kylah 12.9 (11.5-15.5) % Plt Count 272 (140-440) K/uL Neut % (Auto) 76.2 H (42.0-72.0) % Lymph % (Auto) 15.1 L (20-44) % [place] % (Auto) 5.3 (0.0-11.0) % Eos % (Auto) 3.0 (0.0-7.0) % Baso % (Auto) 0.3 (0.0-3.0) % Neut # (Auto) 7.30 H (1.7-7.0) K/uL Lymph # (Auto) 1.50 (0.90-2.90) K/uL [place] # (Auto) 0.50 (0.00-0.90) K/UL Eos # (Auto) 0.29 (0.00-0.50) K/uL Baso # (Auto) 0.03 (0.00-0.30) K/uL D-Dimer Quant (PE/DVT) < 0.27 (0.00-0.50) ug/ml Sodium (135-149) mmol/L Potassium (3.6-5.1) mmol/L Chloride (96-114) mmol/L Carbon Dioxide (20-32) mmol/L BUN (5-24) mg/dL Creatinine (0.5-1.5) mg/dL Estimated Creat Clear Estimated GFR ml/min Glucose (60-115) mg/dL Calcium (8.4-10.6) mg/dL Total Bilirubin (0.1-1.5) mg/dL Direct Bilirubin (0.0-0.5) mg/dL AST (12-35) U/L ALT (4-35) U/L Alkaline Phosphatase (40-150) U/L Troponin I (0.01-0.04) ng/mL NT-Pro-B Natriuret Pep pg/mL Total Protein (6.0-8.3) g/dL Albumin (3.3-5.0) g/dL Urine Color (Yellow) Urine Appearance (Clear) Urine pH (5.0-8.5) Ur Specific [place] (1.000-1.030) Urine Protein (Negative) Urine Glucose (UA) (Negative) Urine Ketones (Negative) Urine Blood (Negative) Urine Nitrite (Negative) Urine Bilirubin (Negative) Urine Urobilinogen (0.2-1.0) Ur Leukocyte Esterase (Negative) Urine RBC (0-2) Urine WBC (0-5) Ur Squamous Epith Cells (None-Few) Other Sediment (None) Urine Bacteria (None) Ethyl Alcohol (0.01-0.03) % POC Troponin I 0.07 H (0.01-0.04) ng/ml 06/16/22 06/16/22 06/16/22 Range/Units 23:35 23:35 23:35 WBC (4.50-11.00) K/uL RBC (4.00-5.20) m/uL Hgb (12.0-16.0) gm/dL Hct (33.0-51.0) % MCV (80-100) fL MCH (26-34) pg MCHC (32-36) gm/dL RDW Coeff of Kylah (11.5-15.5) % Plt Count (140-440) K/uL Neut % (Auto) (42.0-72.0) % Lymph % (Auto) (20-44) % [place] % (Auto) (0.0-11.0) % Eos % (Auto) (0.0-7.0) % Baso % (Auto) (0.0-3.0) % Neut # (Auto) (1.7-7.0) K/uL Lymph # (Auto) (0.90-2.90) K/uL [place] # (Auto) (0.00-0.90) K/UL Eos # (Auto) (0.00-0.50) K/uL Baso # (Auto) (0.00-0.30) K/uL D-Dimer Quant (PE/DVT) (0.00-0.50) ug/ml Sodium 138 (135-149) mmol/L Potassium 3.7 (3.6-5.1) mmol/L Chloride 105 (96-114) mmol/L Carbon Dioxide 26 (20-32) mmol/L BUN 15 (5-24) mg/dL Creatinine 0.8 (0.5-1.5) mg/dL Estimated Creat Clear 89.08 Estimated GFR 94 ml/min Glucose 132 H (60-115) mg/dL Calcium 8.8 (8.4-10.6) mg/dL Total Bilirubin 0.3 (0.1-1.5) mg/dL Direct Bilirubin 0.2 (0.0-0.5) mg/dL AST 19 (12-35) U/L ALT 20 (4-35) U/L Alkaline Phosphatase 97 (40-150) U/L Troponin I < 0.01 L (0.01-0.04) ng/mL NT-Pro-B Natriuret Pep < 20 pg/mL Total Protein 7.4 (6.0-8.3) g/dL Albumin 4.5 (3.3-5.0) g/dL Urine Color Yellow (Yellow) Urine Appearance Clear (Clear) Urine pH 7.0 (5.0-8.5) Ur Specific [place] 1.010 (1.000-1.030) Urine Protein Negative (Negative) Urine Glucose (UA) Negative (Negative) Urine Ketones Negative (Negative) Urine Blood Negative (Negative) Urine Nitrite Negative (Negative) Urine Bilirubin Negative (Negative) Urine Urobilinogen 0.2 (0.2-1.0) Ur Leukocyte Esterase Negative (Negative) Urine RBC 0-2 (0-2) Urine WBC 0-2 (0-5) Ur Squamous Epith Cells Moderate A (None-Few) Other Sediment YEAST (None) Urine Bacteria None (None) Ethyl Alcohol < 0.01 L (0.01-0.03) % POC Troponin I (0.01-0.04) ng/ml Discharge Plan Discharge Clinical Impression: Elevated blood pressure reading, Anxiety, Atypical chest pain Patient Disposition: Home w/ Parent or Adult Condition: Improved Instructions: Anxiety (ED) Additional Instructions: I am overall reassured. I hope you can manage a good night's sleep. follow-up for stress test/stress echo as planned. Activity Level: No Restrictions Discharge Diet: Regular Prescriptions: No Action Zyrtec 10 mg capsule 40 mg PO QDAY PRN pantoprazole 40 mg tablet,delayed release (DR/EC) 40 mg PO Follow Up/Referrals: Lety Gaines PA-C [Primary Care Provider] - Stand Alone Forms: [employer] Info Instructions
== END 2022-06-17 01:51 | disposition home or self-care (01) ==
PROVIDERS: Emergency Provider Family Medicine; PCP Physician Assistant Medical
DX: R03.0 Elevated blood-pressure reading, without diagnosis of hypertension (principal); F41.9 Anxiety disorder, unspecified
CPT/HCPCS: 36415; 80048; 80076; 81001; 82077; 83880; 84484; 85025; 85379; 93005; 94761; 96374; 99283; 99284; J2060; J7030

== ENCOUNTER 2022-07-01 14:44 | Outpatient (CLI) | payer BC, SELFPAY ==
[2022-07-01 16:08] VITALS: BP 144/100; PULSE 92; RESP 18
[2022-07-01] MEDS: PERFLUTREN LIPID MICROSPHERES 2 ML VIAL IV (16:09)
--- NOTE | 2022-07-01 19:57 | P.STN_ITS ---
Stress Test Note Date Time Seen by Provider: 15:55 Date Seen: 07/01/22 Date of test: 07/01/22 Providers Referring provider: Lety Gaines Primary care provider: Lety Gaines Stress test physician: Anabelle Morelos Stress Test Note Stress test ordered: Stress Echo Indication for test: Chest pain Stress test medicine: [facility] Results discussion: Resting EKG: Shows sinus rhythm, 80 beats per minute, some artifact noted Resting blood pressure 142/80 Stress test: Patient was exercised on the treadmill following standard Ryan protocol. Patient was able to exercise 6 minutes 47 seconds giving her rate pressure product of 16,728, note blood pressure was not able to be heard during the stress test. Thus, systolic blood pressure of 160 for was used at the end of the stress test. She achieved a maximum heart rate of 156 beats per minute which was 103% of a calculated target heart rate of 151. Test was terminated as she had reached her target heart rate, was becoming dyspneic at this level of exercise and was having calf fatigue with the incline of the treadmill. She had no chest pain. There are no arrhythmias, no significant ST segment changes. Echo images pending to couple this for a full formal diagnostic report. Patient discharged in stable condition. Impression: Subjectively negative, objectively negative EKG portion of this treadmill exercise stress echo. Follow up suggested: Await her primary provider to get the full formal report and contact her.
== END 2022-07-01 14:45 | disposition home or self-care (01) ==
LOC: STRESS 14:44
PROVIDERS: PCP Physician Assistant Medical; Visit Provider Physician Assistant Medical
DX: R07.9 Chest pain, unspecified (principal)
CPT/HCPCS: 93016; 93325; 93351; Q9957

== ENCOUNTER 2023-07-11 08:29 | Outpatient (CLI) | payer BC, SELFPAY | END 2023-07-11 08:30 | disposition home or self-care (01) | PROVIDERS: PCP Physician Assistant Medical; Visit Provider Physician Assistant Medical | DX: I10 Essential (primary) hypertension (principal); Z13.220 Encounter for screening for lipoid disorders; Z13.29 Encounter for screening for other suspected endocrine disorder | CPT/HCPCS: 80053; 80061; 84443 ==

== ENCOUNTER 2024-07-19 15:25 | Outpatient (CLI) | payer BC, SELFPAY | END 2024-07-19 15:26 | disposition home or self-care (01) | PROVIDERS: PCP Physician Assistant Medical; Visit Provider Physician Assistant Medical | DX: I10 Essential (primary) hypertension (principal); R53.83 Other fatigue; Z13.220 Encounter for screening for lipoid disorders; Z13.21 Encounter for screening for nutritional disorder; Z13.29 Encounter for screening for other suspected endocrine disorder | CPT/HCPCS: 80053; 80061; 82306; 82607; 84443 ==

== ENCOUNTER 2024-08-01 14:18 | Outpatient (CLI) | payer BC, SELFPAY | END 2024-08-01 14:19 | disposition home or self-care (01) | PROVIDERS: PCP Physician Assistant Medical; Visit Provider Otolaryngology | DX: J34.89 Other specified disorders of nose and nasal sinuses (principal); E55.9 Vitamin D deficiency, unspecified; E66.9 Obesity, unspecified; R68.2 Dry mouth, unspecified | CPT/HCPCS: 86038; 86235; 86431 ==

== ENCOUNTER 2024-08-10 10:45 | Outpatient (CLI) | payer BC, SELFPAY | END 2024-08-10 10:46 | disposition home or self-care (01) | LOC: CT 10:45 | PROVIDERS: PCP Physician Assistant Medical; Visit Provider Otolaryngology | DX: J32.9 Chronic sinusitis, unspecified (principal); K11.1 Hypertrophy of salivary gland | CPT/HCPCS: 70486; 70491; Q9967 ==

== ENCOUNTER 2024-08-11 22:53 | Emergency (ER) | payer BC, SELFPAY ==
--- OUTSIDE RECORDS SUMMARY | 2024-08-11 22:55 | XMS_ITS | Encounter Summary ---
Author Organization [facility] Address [address] [facility] [place] [address] Care Team Providers Care Associate Professor Of Biology Name Role Phone Nona David PA-C Primary Care Provi ariel Nona David PA-C Unavailable [phone] Ugo Prado MD Unavailable [phone] Sly Ivy MD Unavailable Beth Latham MD Primary Care Provider [phone] Beth Latham MD Unavailable [phone] Encounter Details Date Type Department Care Team (Late st Contact Info) Description 10/27/2018 MyC Medical Advice [facility] [address] [place] [id number] Irais Dahl PA-C [address] [place], [place] [id number] [place] [id number] Social History Tobacco Use Types Packs/Day Years Used Date Smoking Tobacco: Never Smokeless Tobacco: Never Alcohol Use Standard Drinks/Week Comments No 0 (1 standard drink = 0.6 oz pur e alcohol) PHQ-2 Answer Date Recorded PHQ-2 Score 0 07/04/2018 Comments No Sex and Gender Information Value Date Recorded Sex Assigned at Not on file 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[employer] Gender Identity Not on file Sexual Orientation Not on file documented as of this encounter Plan of Treatment Not on file documented as of this encounter Visit Diagnoses Not on filedocumented in this encounter Additional Health Concerns Infection Onset Date Last Indicated Resolved Time Rule Out COVID-19 07/15/2020 07/15/2020 07/15/2020 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[employer] Rule Out COVID-19 11/04/2021 11/04/2021 11/04/2021 12:33 PM CDT COVID-19 11/04/2021 11/04/2021 11/25/2021 11:3 9 PM CDT Assessment Noted Time PHQ-9 Depression Total Score: 0 05/17/20 18 10:14 AM SUPERVISOR [employer] documented as of this encounter Care Teams Associate Professor Of Biology Relationship Specialty Start Date End Date Nona David PA-C PCP - General Physician Search Analyst 08/21/18 07/27/20 [place] [address] [address] [place] [id number] PCP - General Internal Medicine 07/28/20 Nona David PA-C [address] [facility] [address] [place] [address] Assigned PCP 05/28/18 05/19/19 Ugo Prado MD [address] [place] [id number] Assigned PCP 05/20/19 08/09/20 Sly Ivy MD [address] [place] [id number] Assigned Sleep Provider 04/18/20 [place] [address] [address] [id number] Assigned PCP 08/10/20 documented as of this encounter
--- OUTSIDE RECORDS SUMMARY | 2024-08-11 22:55 | XMS_ITS | Clinical Summary ---
Author Organization [facility] Address [address] [place] [address] Care Team Providers Care Top Tile Decorator Name Role Phone Unavailable Primary Care Provider Unavailabl e Source Comments You are receiving this document as you are listed as the primary care provider,follow-up provider, or the patient has been referred to you for consultation.This is in compliance with the Medicare andMedicaid EHR Incentive Program,which states Providers who transition their patient to another setting of careor provider of care or refers their patient to another provider of care shouldprovide summary care record for each transition of care or referral. [facility] Allergies Active Allergy Reactions Criticality Noted Date Comments Barium Iodid Anaphylaxis High 11/15/2010 Morphine And Codeine Gastrointestinal 2 Medications EPINEPHrine (EPIPEN) 0.3 MG/0.3ML injection Inject intramuscul sarah. 11/16/[address] (PROTONIX) 40 MG tablet Take 1 Tablet (40 mg) by mouth daily. 09/15/2021 Active Cetirizine HCl (ZYRTEC OR) Active escitalopram (LEXAPRO) 10 MG tablet Take 1 Tablet (10 mg) by mouth daily. 04/04/2023 Active hydroCHLOROthiaz cece (ORETIC) 12.5 MG tablet Take 1 Tablet (12.5 mg) by mouth daily. 02/21/2023 Active losartan (COZAAR) 25 MG tablet Take 1 Tablet (25 mg) by mouth daily. 04/04/2023 Active metFORMIN (GLUCOPHAGE) 500 MG tablet Take 1 Tablet (500 mg) by mouth two times a day. 05/11/2023 Active Active Problems No known active problems Social History Tobacco Use Types Packs/Day Years Used Date Smoking Tobacco: Never Smokeless Tobacco: Never Comments No Sex and Gender Information Value Date Recorded Sex Assigned at Not on file Legal Sex Female 10:50 AM CDT Gender Identity Not on file Sexual Orientation Not on file Last Filed Vital Signs Vital Sign Reading Time Taken Comments Blood Pressure 146/99 05/16/2023 8:40 AM PODIATRIC PHYSICIAN Pulse 72 05/16/2023 8:40 AM PODIATRIC PHYSICIAN Temperature 36.8 C (98.2 F) 05/16/2023 8:40 AM PODIATRIC PHYSICIAN Respiratory Rate 16 05/16/2023 8:40 AM PODIATRIC PHYSICIAN Oxygen Saturation 99% 05/16/2023 8:40 AM PODIATRIC PHYSICIAN Inhaled Oxygen Concentration - - Weight - - Height - - Body Mass Index - - Plan of Treatment Health Maintenance Due Date Last Done Comments Cervical Cancer Screening Due 1980 Hep C Screening (Preventive Services) 1980 Mammogram 1980 HIV Screening (Preventive Services) 1996 Adult Preventive Visit 1998 HepB (1) 1999 DTaP/Tdap/Td (3 - Tdap) 12/14/2021 12/15/19 12, 07/21/2009 COVID-19 Vaccine ( - 2023-2 5 season) 2024 Influenza (#1) 2024 03/15/2013, 04/02/2009, 04/01/2008 Zoster/Shingles (1 of 2) 2030 HepA Aged Out 08/02/2013, 01/15/2013, 09/04/2012 No longer eligible based on patient's age to complete this topic HPV Vaccine Aged Out No longer eligi ble based on patient's age to complete this topic Hib Aged Out No longer eligi ble based on patient's age to complete this topic IPV (Polio) Aged Out No longer eligi ble based on patient's age to complete this topic MCV4 Aged Out No longer eligi ble based on patient's age to complete this topic Meningococcal B Aged Out No longer el igible based on patient's age to complete this topic Pneumococcal Aged Out No longer eligi ble based on patient's age to complete this topic Insurance (Work) [address] [place] [address] [facility] (Home) [address] [place] [address] [facility] (Home) [address] [place] [address] [facility]
--- OUTSIDE RECORDS SUMMARY | 2024-08-11 22:55 | XMS_ITS | Clinical Summary ---
Author Organization [facility] Address [place], [place] [address] Care Team Providers Care Machine Heel Sprayer Name Role Phone Lety Gaines PA-C Primary Care Provider Allergies Active Allergy Reactions Criticality Noted Date Comments Barium Iodide 11/15/2010 Medications polyethylene glycol (MIRALAX) 17 g PwPk Take 1 Packet by mouth. Active azithromycin (ZITHROMAX Z-JOSSELYN) 250 mg tablet Take 2 tablets by mouth today, then take 1 tablet daily the next 4 days. 6 tablet 06/14/2014 7:53 PM VALVE AND REGULATOR REPAIRER 06/14/2014 Active Active Problems Problem Noted Date Diagnosed Date Primary osteoarthritis of right shoulder 023 Dysmenorrhea 01/31/2006 Unspecified asthma(493.90) 10/11/2005 Immunizations Name Administration Dates Next Due Influenza, IIV3 (Age >=3 years) 04/01/2008 Social History Tobacco Use Types Packs/Day Years Used Date Smoking Tobacco: Never Alcohol Use Standard Drinks/Week Comments No 0 (1 standard drink = 0.6 oz pur e alcohol) Comments No Sex and Gender Information Value Date Recorded Sex Assigned at Not on file Legal Sex Female 6:23 AM VALVE AND REGULATOR REPAIRER Gender Identity Not on file Sexual Orientation Not on file Obstetrics History Para Term AB IAB SAB Ectopic Multiple Livin g Live Births 3 1 1 0 1 0 0 0 0 1 1 Date Outcome GA Total Labor Labor/2nd/3rd Weight Sex Type Anes PTL Amanda A1 A5 Name Clin Comments:System Genera luis eduardo. Please review and update details. 7 AB 12w 0d Delivery Location:[facility] Comments:missed AB- D& C 2006 Term 40w 1d 5h 00m/ 4.11 kg (9 lb 1 oz) F C-Sec tion Epidur al N Livin g Anali Delivery Location:[facility] Comments:FTP Last Filed Vital Signs Vital Sign Reading Time Taken Comments Blood Pressure 144/81 11/15/2010 8:16 PM CDT Pulse 80 11/15/2010 8:48 PM CDT Temperature 37.2 C (99 F) 11/15/2010 8:16 PM CDT Respiratory Rate 18 11/15/2010 8:48 PM CDT Oxygen Saturation 98% 11/15/2010 8:16 PM CDT Inhaled Oxygen Concentration - - Weight 113.4 kg (250 lb) 11/15/2010 8:16 PM CDT Height 172.7 cm (5' 8) 11/15/2010 8:16 PM CDT Body Mass Index 38.01 11/15/2010 8:16 PM CDT Plan of Treatment Health Maintenance Due Date Last Done Comments Tdap 1991 Depression screening for age 12+ 1992 HIV for age 15-65 1995 BMI (ht and wt on same day) for age 18+ 1998 Hepatitis C screening for ag e 18-79 1998 Tetanus booster 2000 Pap test for age 21-65 07/21/2012 07/21/2009 COVID-19 vaccine series ( - 2023- season) 2024 Influenza for age 9-49 02/26/2024 04/01/2008 Pneumococcal series for age 6-49 Aged Out No longer eligible based on patient's age to complete this topic Procedures Procedure Name Priority Date/Time Associated Diagnosis Comments GYNECOLOGICAL PANEL Timed 07/21/2009 8 :19 AM VALVE AND REGULATOR REPAIRER from Last 3 Months or Most Recently Relevant to Health Maintenance Results * GYNECOLOGICAL PANEL (07/21/2009 8:19 AM VALVE AND REGULATOR REPAIRER) CYTOLOGY CYTOPATHOLOGY REPORT [facility] Status: Final Status [id number] CLINICAL INFORMATION Last Date of LMP :07/14/09 Last Pap Date :06/02 Last Pap Result :WNL [place]/Bx done today :No HPV Request :HPV if ASCUS SPECIMEN SOURCE :Cervical/vaginal ThinPrep Vial, screening SPECIMEN ADEQUACY :Satisfactory for evaluation Endocervical component present. INTERPRETATION/RES ULT Negative for intraepithelial lesion or malignancy (NIL) Cytology 1st Screener :cedric Signed by :cedric This specimen was screened by the FDA approved ThinPrep Imaging System and manually reviewed. NOTE: The Pap test is a screening technique, not a diagnostic procedure. It is used primarily to screen for squamous cancers and precursor lesions. Published studies have shown that it is subject to both false negative and false positive results. The pap test should not be used as the sole means to diagnose or exclude pre-malignant and malignant lesions. COLLECTED:07/21/09 ACCESSIONED: 07/23/09 SIGNED: 07/25/09 [facility] PAP [place] CODE NIL [facility] 07/21/2009 8:19 AM VALVE AND REGULATOR REPAIRER 07/23/2009 8:19 AM VALVE AND REGULATOR REPAIRER september Gaby GONZALEZ PATHOLOGY/CYTOLOGY Final R esult [facility] [place]NAL ZIP [address] [address] from Last 3 Months or Most Recently Relevant to Health Maintenance Insurance [address] [place] [facility] [address] [facility] Advance Directives * Full Code (Latest Code Status on File) Date Activated Date Inactivated Comments 10/10/2008 11:15 AM 10/13/2008 1:57 PM * Full Code Date Activated Date Inactivated Comments 10/10/2008 7:29 AM 10/10/2008 11:15 AM Care Teams Machine Heel Sprayer Relationship Specialty Start Date End Date Lety Gaines PA-C [address] [place] [address] PCP - General Emergency Medicine 07/01/22
--- OUTSIDE RECORDS SUMMARY | 2024-08-11 22:55 | XMS_ITS | Encounter Summary ---
Author Organization [place] Address [facility] [place] [address] Care Team Providers Care Beamer Operator Name Role Phone Beth Latham MD Primary Care Provider [phone] Beth Latham MD Unavailable [phone] Encounter Details Date Type Department Care Team (Late st Contact Info) Description 07/10/2021 Documentation Only INTERFACED REPORT Unknown, Provider Social History Tobacco Use Types Packs/Day Years Used Date Smoking Tobacco: Never Smokeless Tobacco: Never Alcohol Use Standard Drinks/Week Comments No 0 (1 standard drink = 0.6 oz pur e alcohol) PHQ-2 Answer Date Recorded PHQ-2 Score 0 07/13/2021 Comments No Sex and Gender Information Value Date Recorded Sex Assigned at Not on file Legal Sex Female 3:31 AM DONOR SERVICES MANAGER Gender Identity Not on file Sexual Orientation Not on file COVID-19 Exposure Response Date Recorded In the last month, have you been in contact with someone who was confirmed or suspected to have Coronavirus / COVID-19? No / Unsure 07/13/2021 11:19 AM DONOR SERVICES MANAGER documented as of this encounter Plan of Treatment Not on file documented as of this encounter Visit Diagnoses Not on filedocumented in this encounter Additional Health Concerns Infection Onset Date Last Indicated Resolved Time Rule Out COVID-19 11/04/2021 11/04/2021 11/04/2021 12:33 PM CDT COVID-19 11/04/2021 11/04/2021 11/25/2021 11:3 9 PM CDT Assessment Noted Time PHQ-9 Depression Total Score: 5 07/29/19 21 9:49 AM DONOR SERVICES MANAGER documented as of this encounter Care Teams Beamer Operator Relationship Specialty [place] [address] [address] [address] PCP - General Internal Medicine 07/28/20 [place] [address] [address] [address] Assigned PCP 08/10/20 documented as of this encounter
--- OUTSIDE RECORDS SUMMARY | 2024-08-11 22:55 | XMS_ITS | Encounter Summary ---
Author Organization [place] Address [address] [facility] [place] [address] Care Team Providers Care Automotive Sales Executive Name Role Phone Mora Yanes MD Primary Care Provider Unavailable Beth Latham MD Primary Care Provider [phone] Beth Latham MD Unavailable [phone] Nona David PA-C Unavailable [phone] Nona David PA-C Primary Care Provi ariel Nona David PA-C Unavailable [phone] Ugo Prado MD Unavailable [phone] Sly Ivy MD Unavailable Beth Latham MD Primary Care Provider [phone] Beth Latham MD Unavailable [phone] Encounter Details Date Type Department Care Team (Late st Contact Info) Description 12/09/2011 [facility] [address] [address] [place] Social History Tobacco Use Types Packs/Day Years Used Date Smoking Tobacco: Never Alcohol Use Standard Drinks/Week Comments Not Asked 0 (1 standard drink = 0.6 oz pur e alcohol) Comments Unknown Sex and Gender Information Value Date Recorded Sex Assigned at Not on file Legal Sex Female 3:31 AM OB NURSE Gender Identity Not on file Sexual Orientation Not on file documented as of this encounter Plan of Treatment Not on file documented as of this encounter Visit Diagnoses Not on filedocumented in this encounter Additional Health Concerns Infection Onset Date Last Indicated Resolved Time Rule Out COVID-19 07/15/2020 07/15/2020 07/15/2020 2:35 PM OB NURSE Rule Out COVID-19 11/04/2021 11/04/2021 11/04/2021 12:33 PM CDT COVID-19 11/04/2021 11/04/2021 11/25/2021 11:3 9 PM CDT documented as of this encounter Care Teams Automotive Sales Executive Relationship Specialty Start Date End Date Mora Yanes MD PCP - General Pediatrics 07/29/11 12/14/11 [place] [address] [address] [address] PCP - General Internal Medicine 12/15/11 08/20/18 [place] [address] [address] [address] PCP - Assigned PCP 01/02/12 05/27/18 Nona David PA-C [address] [place] [address] PCP - Assigned PCP 05/28/18 08/29/18 Nona David PA-C [address] [place] [address] PCP - General Physician Care Management Associate 08/21/18 07/27/20 [place] [address] [address] [address] PCP - General Internal Medicine 07/28/20 Nona David PA-C [address] [facility] [address] [place] [address] Assigned PCP 05/28/18 05/19/19 Ugo Prado MD [address] [facility] [address] [place], [place] [id number] Assigned PCP 05/20/19 08/09/20 Sly Ivy MD [address] [place] [address] [address] [address] Assigned Sleep Provider 04/18/20 [place] [address] [address] [address] Assigned PCP 08/10/20 documented as of this encounter
--- OUTSIDE RECORDS SUMMARY | 2024-08-11 22:55 | XMS_ITS | Encounter Summary ---
Author Organization [place] Address [address] [facility] [place] [address] Care Team Providers Care Rn Review Name Role Phone Nona David PA-C Primary Care Provi ariel Ugo Prado MD Unavailable [phone] Sly Ivy MD Unavailable Beth Latham MD Primary Care Provider [phone] Beth Latham MD Unavailable [phone] Reason for Visit * Reason Comments Sleep Problem Encounter Details Date Type Department Care Team (Late st Contact Info) Description 03/18/2020 [facility] [address] [address] Sly Ivy MD [address] [address] EMMIE (obstructive sleep apnea) (Primary Dx) Social History Tobacco Use Types Packs/Day Years Used Date Smoking Tobacco: Never Smokeless Tobacco: Never Alcohol Use Standard Drinks/Week Comments No 0 (1 standard drink = 0.6 oz pur e alcohol) PHQ-2 Answer Date Recorded PHQ-2 Score 0 07/04/2018 Comments No Sex and Gender Information Value Date Recorded Sex Assigned at Not on file Legal Sex Female 3:31 AM TRIM ATTACHER Gender Identity Not on file Sexual Orientation Not on file documented as of this encounter Plan of Treatment Not on file documented as of this encounter Visit Diagnoses Diagnosis EMMIE (obstructive sleep apnea)- Primary Obstructive sleep apnea (adult) (pediatric) documented in this encounter Additional Health Concerns Infection Onset Date Last Indicated Resolved Time Rule Out COVID-19 07/15/2020 07/15/2020 07/15/2020 2:35 PM TRIM ATTACHER Rule Out COVID-19 11/04/2021 11/04/2021 11/04/2021 12:33 PM CDT COVID-11/04/2021 11/04/2021 11/25/2021 11:3 9 PM CDT Assessment Noted Time PHQ-9 Depression Total Score: 0 05/17/20 10:14 AM TRIM ATTACHER documented as of this encounter Care Teams Rn Review Relationship Specialty Start Date End Date Nona David PA-C PCP - General Physician Tower Equipment Installer 08/21/18 07/27/20 [place] [address] [address] [address] PCP - General Internal Medicine 07/28/20 Ugo Prado MD [address] [place] [address] Assigned PCP 05/20/19 08/09/20 Sly Ivy MD [address] [place] [place] [address] Assigned Sleep Provider 04/18/20 [place] [address] [address] [address] Assigned PCP 08/10/20 documented as of this encounter
--- OUTSIDE RECORDS SUMMARY | 2024-08-11 22:55 | XMS_ITS | Clinical Summary ---
Author Organization [place] Address [address] [place] [place] [address] Care Team Providers Care Rags Laborer Name Role Phone Beth Latham MD Primary Care Provider [phone] Bteh Latham MD Unavailable [phone] Allergies Active Allergy Reactions Criticality Noted Date Comments Barium 08/11/2011 Hydrocodone-Acetaminophen Nausea and Vomiting 0 12/20/2016 Medications cetirizine (ZYRTEC) 10 MG tablet Take 40 mg by mouth daily Active pantoprazole (PROTONIX) 40 MG EC tablet 2 8 Active EPINEPHrine (ANY BX GENERIC EQUIV) 0.3 MG/0.3ML injection 2-packIndicatio ns:Multiple drug allergies Inject 0.3 mLs (0.3 mg) into the muscle as needed for anaphylaxis 2 each 1 2 Active Active Problems Problem Noted Date Diagnosed Date EMMIE (obstructive sleep apnea) 01/15/2019 Prediabetes 11/29/2018 Gastroesophageal reflux disease without esophagi tis 08/21/2018 Dry mouth 08/21/2018 Morbid obesity due to excess calories (H) BMI>45 12/26/2016 Overview (12/26/2016): BMI >45 Chronic right shoulder pain 12/26/2016 Overview (12/26/2016): past surgeries. more pain Urticaria 10/02/2014 Overview (03/28/2015): Allergy evaluation without etiology Problem list name updated by automated process. Provider to review Globus sensation 10/02/2014 Overview (10/02/2014): on high dose PPI, increased risk; has also had EGD - nl CARDIOVASCULAR SCREENING; LDL GOAL LESS THAN 160 12/26/2011 Immunizations Name Administration Dates Next Due Influenza (IIV3) PF 03/15/2013,04/02/2009,2007 TDAP Vaccine (Adacel) 12/15/2011,07/21/2009 Twinrix A/B 08/02/2013,01/15/2013,09/04/2012 Family History * Patient is adopted Medical History Relation Comments Unknown/Adopted Father Unknown/Adopted Mother Relation Status Comments Father Mother Social History Tobacco Use Types Packs/Day Years Used Date Smoking Tobacco: Never Smokeless Tobacco: Never Tobacco Cessation:Counseling Given: No Alcohol Use Standard Drinks/Week Comments No 0 (1 standard drink = 0.6 oz pur e alcohol) PHQ-2 Answer Date Recorded PHQ-2 Score 0 11/16/2021 Adolescent Education Answer Date Record ed Getting School Help Needed Not on file 04/05 Comments No Sex and Gender Information Value Date Recorded Sex Assigned at Not on file Legal Sex Female 3:31 AM CALENDER TENDER Gender Identity Not on file Sexual Orientation Not on file Last Filed Vital Signs Vital Sign Reading Time Taken Comments Blood Pressure 116/80 11/16/2021 3:17 PM CDT Pulse 78 11/16/2021 3:17 PM CDT Temperature 36.9 C (98.5 F) 11/16/2021 3:17 PM CDT Respiratory Rate 20 11/16/2021 3:17 PM CDT Oxygen Saturation 98% 11/16/2021 3:17 PM CDT Inhaled Oxygen Concentration - - Weight 126.1 kg (278 lb) 11/16/2021 3:17 PM CDT Height 170.2 cm (5' 7) 11/04/2021 11:33 AM CDT Body Mass Index 43.54 11/04/2021 11:33 AM CDT Plan of Treatment Health Maintenance Due Date Last Done Comments HIV SCREENING 1995 HEPATITIS C SCREENING 1998 YEARLY PREVENTIVE VISIT 07/29/2021 07/29/19 21, 05/17/2018, 12/20/2016, Additional history exists DTAP/TDAP/TD IMMUNIZATION (3 - Td or Tdap) 12/14/2021 12/15/2011, 07/21/2009 ANNUAL REVIEW OF HM ORDERS 07/13/2022 07/13/2021 MAMMO SCREENING 08/17/2023 08/17/2021, 07/28, 05/29/2018 COVID-19 Vaccine ( season) 2024 INFLUENZA VACCINE (#1) 2024 (Declined), 03/15/2013, 04/02/2009, Additional history exists PHQ-2 (once per calendar year) 2024 11/16/2021, 07/13/2021, 07/13/2021, Additional history exists GLUCOSE 11/04/2024 11/04/2021, 06/27, 07/29/2020, Additional history exists LIPID 07/29/2025 07/29/2020, 04/28, 10/02/2014, Additional history exists ADVANCE CARE PLANNING 09/29/2025 09/29/2020 (Decline d) ZOSTER IMMUNIZATION (1 of 2) 2030 RSV VACCINE (1 - 1-dose 75+ series) 2055 PAP Discontinued 07/21/2009 HEPATITIS B IMMUNIZATION Completed 014, 01/15/2013, 09/04/2012 HPV IMMUNIZATION Aged Out No longer e ligible based on patient's age to complete this topic MENINGITIS IMMUNIZATION Aged Out No l onger eligible based on patient's age to complete this topic Pneumococcal Vaccine: Pediatrics (0 to 5 Years) and At-Risk Patients (6 to 49 Years) Aged Out No longer eligible based on patient's age to complete this topic RSV MONOCLONAL ANTIBODY Aged Out No l onger eligible based on patient's age to complete this topic Procedures Procedure Name Priority Date/Time Associated Diagnosis Comments BASIC METABOLIC PANEL STAT 11/04/2021 11:47 AM CDT MA SCREENING BILATERAL W/ GERBER Routine 08/17/2021 1:53 PM CALENDER TENDER Visit for screening mammogram LIPID REFLEX TO DIRECT LDL PANEL Routine 07/29/2020 9:38 AM CALENDER TENDER CARDIOVASCULAR SCREENING; LDL GOAL LESS THAN 130 ABSTRACT PAP (HIM EXTERNAL RESULT) Routine 07/21/2009 from Last 3 Months or Most Recently Relevant to Health Maintenance Results * (ABNORMAL) Basic metabolic panel (BMP) (11/04/2021 11:47 AM CDT) Sodium 134 133 - 144 mmol/L 11/04/2021 12:25 PM CDT LABORATORY Potassium 4.0 3.4 - 5.3 mmol/L 11/04/2021 12:25 PM CDT LABORATORY Chloride 102 94 - 109 mmol/L 11/04/2021 12:25 PM CDT LABORATORY Carbon Dioxide (CO2) 26 20 - 32 mmol/L 11/04/2021 12:25 PM CDT LABORATORY Anion Gap 6 3 - 14 mmol/L 11/04/2021 12:25 PM CDT LABORATORY Urea Nitrogen 13 7 - 30 mg/dL 11/04/2021 12:25 PM CDT LABORATORY Creatinine 0.89 0.52 - 1.04 mg/dL 11/04/2021 12:25 PM CDT LABORATORY Calcium 8.5 8.5 - 10.1 mg/dL 11/04/2021 12:25 PM CDT LABORATORY Glucose 112(H) 70 - 99 mg/dL 11/04/2021 12:25 PM CDT LABORATORY GFR Estimate 83 >60 mL/min/1.7 3m2 11/04/2021 12:25 PM CDT LABORATORY Comment:Effective May 282020 eGFRcr in adults is calculated using the 2020 CKD-EPI creatinine equation which includes age and gender (Steffany et al., NEJM, DOI: 10.1056/VRENao7159079) Blood STRUCTURE OF RIGHT UPPER LIMB / Unknown Venipuncture / Unknown 11/04/2021 11:47 AM CDT 11/04/2021 11:57 AM CDT us Wm Deleon MD LAB - BLOOD ORDERABLES Final Result LABORATORY [facility] [address] (1st floor, no room number) [place] [address], [facility] [phone] * MA Screen Bilateral w/Gerber (08/17/2021 1:53 PM CALENDER TENDER) Anatomical Region Laterality Modality Breast Bilateral Mammography Narrative 08/17/2021 2:53 PM CALENDER TENDER BILATERAL FULL FIELD DIGITAL SCREENING MAMMOGRAM WITH TOMOSYNTHESIS Performed on: 08/17/21 Compared to: 08/11/2020 and 05/29/2018 Technique: This study was evaluated with the assistance of Computer-Aided Detection. Breast Tomosynthesis was used in interpretation. Findings: The breasts have scattered areas of fibroglandular density. There is no radiographic evidence of malignancy. IMPRESSION: ACR BI-RADS Category 1: Negative RECOMMENDED FOLLOW-UP: Annual routine screening mammogram The results and recommendations of this examination will be communicated to the patient. us Beth Latham MD IMG MAMMOGRAPHY ORDERABLE S Final Result * (ABNORMAL) Lipid panel reflex to direct LDL Fasting (07/29/2020 9:38 AM CALENDER TENDER) Cholesterol 168 <200 mg/dL 07/29/2020 1:37 PM CALENDER TENDER [facility] Triglycerides 106 <150 mg/dL 07/29/2020 1:37 PM CALENDER TENDER [facility] Comment:Fasting specimen HDL Cholesterol 46(L) >49 mg/dL 1:38 PM CALENDER TENDER [facility] LDL Cholesterol Calculated 101(H) <100 mg/dL 07/29/2020 1:38 PM CALENDER TENDER [facility] Comment: Above desirable: 100-129 mg/dl Borderline High: 130-159 mg/dL High: 160-189 mg/dL Very high: >189 mg/dl Non HDL Cholesterol 122 <130 mg/dL 07/29/2020 1:38 PM CALENDER TENDER [facility] Blood specimen (specimen) 07/29/2020 9:38 AM CALENDER TENDER 07/29/2020 9:39 AM CALENDER TENDER us Beth Latham MD LAB - BLOOD ORDERABLES Fi nal Result [facility] [address] [place] [address] * ABSTRACT PAP-NO CHARGE (07/21/2009) Impressions [facility] - 07/21/2009 Pap done 07/21/2009 per transferred records - us Patient Reported LAB - HIM EXTERNAL RESULT Final Result [facility] from Last 3 Months or Most Recently Relevant to Health Maintenance [place] Care Teams Rags Laborer Relationship Specialty Start [place] [address] [address] [address] PCP - General Internal Medicine 07/28/20 [place] [address] [address] [address] Assigned PCP 08/10/20
[2024-08-11 23:00] VITALS: O2SAT 99
[2024-08-11 23:08] VITALS: BP 120/82; PULSE 95; RESP 20; TEMP 36.7; O2SAT 99; BMI 47.0
--- NOTE | 2024-08-11 23:17 | ED_ITS ---
HPI - General Adult General Chief complaint: Nausea/Vomiting Stated complaint: Vomiting Time Seen by Provider: 08/11/24 23:16 History of Present Illness HPI narrative: CC: Nausea/ Vomiting pt. woke up around 1999 with sudden vomiting. denies fevers. 44-year-old woman presenting to the emergency department with repeated vomiting and actually with diarrhea as well. She said she was peeing out of her butt. Unfortunately also wetted herself with urination a couple of times as well. Was just been minding her own business watching TV and knew that she was going to be nauseated anticipating vomiting grabbed ?my bucket? and headed to the bathroom. At which point experienced both vomiting and diarrhea. She notes herself to be a rather violent vomiter and often left with some back pain but this is worse than usual. She has had a cholecystectomy. Abdominal pain is not primary complaint here. Did not have a fever. Was in usual state of health before this. Did pass out briefly couple of times and says that this would not be unusual when she is vomiting like this. No chest pain. No shortness of breath. No sense of palpitations. By the time I am seeing her is feeling a little bit better having received at this point 500 mL of normal saline and 4 mg of Zofran. Related Data Home Medications ?Medication ?Instructions ?Recorded ?Confirmed cetirizine 10 mg capsule (Zyrtec) 20 mg PO QDAY PRN 07/12/22 08/14/24 Previous Rx's ?Medication ?Instructions ?Recorded escitalopram oxalate 10 mg tablet 10 mg PO QDAY #90 tabs 07/11/23 (Lexapro) hydrochlorothiazide 12.5 mg tablet 12.5 mg PO QAM #90 tabs 07/11/23 metformin 500 mg tablet 500 mg PO BIDWMEAL #120 tabs 07/11/23 scopolamine base 1 mg over 3 days 1 patch transdermal Q3D PRN motion 09/05/23 transdermal patch sickness #4 ea pantoprazole 40 mg tablet,delayed 40 mg PO QDAY #90 tabs 06/14/24 release losartan 25 mg tablet 25 mg PO QDAY #90 tabs 07/20/24 cefuroxime axetil 500 mg tablet 500 mg PO BID #28 tabs 08/14/24 Allergies Allergy/AdvReac Type Severity Reaction Status Date / Time barium sulfate Allergy Intermediate Anaphylaxis Verified 08/14/24 10:21 hydrocodone Allergy Mild severe Verified 08/14/24 10:21 nausea, vomiting Review of Systems Status of ROS: Reports: 6 or more systems reviewed and unremarkable except as noted in History and below [facility] Medical History Motion sickness due to anesthesia ?T88.59XA - Other complications of anesthesia, initial encounter (ICD-10) ?T75.3XXA - Motion sickness, initial encounter (ICD-10) Chest pain ?R07.9 - Chest pain, unspecified (ICD-10) Infection due to severe acute respiratory syndrome coronavirus 2 (SARS-CoV-2) ?U07.1 - COVID-19 (ICD-10) Endometriosis (04/12/11) ?N80.9 - Endometriosis, unspecified (ICD-10) Adverse effect of drug ?T50.905A - Adverse effect of unspecified drugs, medicaments and biological substances, initial encounter (ICD-10) Surgical History Hx of section ?Z98.891 - History of uterine scar from previous surgery (ICD-10) Hx of shoulder surgery ?Z98.890 - Other specified postprocedural states (ICD-10) History of total abdominal hysterectomy (04/12/11) ?Z90.710 - Acquired absence of both cervix and uterus (ICD-10) History of cholecystectomy (04/12/11) ?Z90.49 - Acquired absence of other specified parts of digestive tract (ICD- 10) Social History Smoking Status: Never smoker Do you use any of these nicotine containing products: None Second hand tobacco smoke exposure: No How often do you have a drink containing alcohol: 2-4 times a month How many standard drinks containing alcohol do you have on a typical day: 1 or 2 How often do you have six or more drinks on one occasion: Never AUDIT-C Alcohol total score: 2 Non-prescribed substance use: denies use Caffeine: Yes service: No Exam Narrative: Exam Narrative: Pleasant. Makes jokes. Appears tired. Oropharynx sticky. Lungs appear to be clear. Heart in elevated rate and regular rhythm. Abdomen is little tender in the epigastrium and the left hypogastrium. Soft. Overweight. Cranial nerves 2 through 12 intact. Well-perfused peripherally. Moving all extremities without difficulty. Const: Vital Signs, click to edit/add: Vital Signs - 24 hr 08/11/24 23:08 Temperature 98.0 F Pulse Rate [Right Pulse Oximeter] 95 Respiratory Rate 20 Blood Pressure [Ri ght Upper Arm] 120/82 Pulse Oximetry 99 Oxygen Delivery Me thod Room Air Documenting provider has reviewed patient's vital signs: yes Course Vital Signs Vital signs: Initial Vital Signs Pulse Oximetry 99 08/11/24 23:00 Vital Signs Pulse Oximetry 99 08/11/24 23:00 Temperature 98.0 F 08/12/24 03:57 Pulse Rate 90 08/12/24 03:57 Respiratory Rate 20 08/12/24 03:57 Blood Pressure 118/78 08/12/24 03:57 Pulse Oximetry 99 08/12/24 02:56 Oxygen Delivery Method Room Air 08/12/24 02:56 Medications Administered Medications: Discontinued Medications Generic Name Dose Route Start Last Admin Trade Name Freq PRN Reason Stop Dose Admin Sodium Chloride 1,000 mls @ 1,000 mls/hr 08/11/24 23:31 08/12/24 00:27 0.9 % Sodium Chloride 1000 Ml IV 08/12/24 00:30 Infused .Q1H ONE Infusion Metoclopramide HCl 10 mg/ 102 mls @ 306 mls/hr 08/12/24 01:33 08/12/24 01:56 Sodium Chloride IVPB 08/12/24 01:34 Infused ONCE ONE Infusion Sodium Chloride 1,000 mls @ 1,000 mls/hr 08/12/24 01:33 08/12/24 02:35 0.9 % Sodium Chloride 1000 Ml IV 08/12/24 02:32 Infused .Q1H ONE Infusion Ketorolac Tromethamine 30 mg 08/11/24 23:30 08/11/24 23:38 Ketorolac 30 Mg/Ml Inj IVP 08/11/24 23:31 30 mg ONCE ONE Administration Ondansetron HCl 4 mg 08/11/24 23:31 08/11/24 23:39 Ondansetron 2 Mg/Ml Inj IVP 08/11/24 23:32 4 mg ONCE ONE Administration Medical Decision Making MDM Narrative Medical decision making narrative: Syncope I suppose would be a red flag here but reports that this is not atypical. At this point would hydrate, give antiemetic and after discussion of options she would appreciate some ketorolac for the back pain she is experiencing. Brief period of vomiting and diarrhea an otherwise healthy individual; I think can reassess need for chemistries, other lab work. Abrupt onset. Considering community prevalence, screen for COVID, influenza. Likely vasovagal related syncope On reassessment is improved but still nauseated. Ordered for further fluid resuscitation and Reglan. Swabs are negative. Suspect other viral process. Further improve again on reassessment with stable vitals. Feels she can manage at home. Has ambulated to the bathroom See patient discharge plan for further discussion Continue to focus on hydration. Slow advance of diet over the next 24-36 hours. Diluted juices, soup broth, crackers, rice, toast. Might take loperamide for diarrhea if needed. Otherwise prescribing Zofran for nausea from [facility]. You can take one as soon as you get them if you like. Return for intractable vomiting or diarrhea, marked increase in persistent abdominal pain, worsening lightheadedness/repeated syncope. Lab Data Lab results reviewed: Yes I reviewed the patient's lab results Labs: Lab Results 08/11/24 Range/Units 23:07 SARS-CoV-2 (PCR) Negative SARS-CoV-2 (Negative) Influenza Type A (PCR) Negative PCR FLU A (Negative) Influenza Type B (PCR) Negative PCR FLU B (Negative) RSV (PCR) Negative PCR RSV (Negative) Discharge Plan Discharge Clinical Impression: Vomiting, Diarrhea Patient Disposition: Home w/ Parent or Adult Condition: Improved Additional Instructions: Continue to focus on hydration. Slow advance of diet over the next 24-36 hours. Diluted juices, soup broth, crackers, rice, toast. Might take loperamide for diarrhea if needed. Otherwise prescribing Zofran for nausea from [facility]. You can take one as soon as you get them if you like. Return for intractable vomiting or diarrhea, marked increase in persistent abdominal pain, worsening lightheadedness/repeated syncope. Prescriptions: No Action Zyrtec 10 mg capsule 20 mg PO QDAY PRN metformin 500 mg tablet 500 mg PO BIDWMEAL Qty: 120 1RF Rx Instructions: take one tablet twice daily for weight management hydrochlorothiazide 12.5 mg tablet 12.5 mg PO QAM Qty: 90 3RF Rx Instructions: once daily for blood pressure escitalopram oxalate [Lexapro] 10 mg tablet 10 mg PO QDAY Qty: 90 3RF Rx Instructions: one tablet daily for stress cefuroxime axetil 500 mg tablet 500 mg PO BID Qty: 28 3RF scopolamine base 1 mg over 3 days patch 3 day 1 patch transdermal Q3D PRN (Reason: motion sickness) Qty: 4 0RF Rx Instructions: Change patch every 3 days p.r.n. For motion sickness pantoprazole 40 mg tablet,delayed release (DR/EC) 40 mg PO QDAY Qty: 90 0RF losartan 25 mg tablet 25 mg PO QDAY Qty: 90 3RF Rx Instructions: once daily for blood pressure Follow Up/Referrals: Lety Gaines PA-C [Primary Care Provider] - Stand Alone Forms: MyHealth Info Instructions
--- OUTSIDE RECORDS SUMMARY | 2024-08-11 23:37 | XMS_ITS | Clinical Summary ---
Author Organization [facility] Address [place], [place] [address] Care Team Providers Care Applicator Sprayer Name Role Phone Lety Gaines PA-C Primary Care Provider [phone] Allergies Active Allergy Reactions Criticality Noted Date Comments Barium Iodide 11/15/2010 Medications polyethylene glycol (MIRALAX) 17 g PwPk Take 1 Packet by mouth. Active azithromycin (ZITHROMAX Z-JOSSELYN) 250 mg tablet Take 2 tablets by mouth today, then take 1 tablet daily the next 4 days. 6 tablet 06/14/2014 7:53 PM BEAD WRAPPER 06/14/2014 Active Active Problems Problem Noted Date [...] on file Legal Sex Female 6:23 AM BEAD WRAPPER Gender Identity Not on file Sexual Orientation [...] update details. 7 AB 12w 0d Delivery Location:[facility] Comments:missed AB- D& C 2006 Term 40w 1d 5h 00m/ 4.11 kg (9 lb 1 oz) F C-Sec tion Epidur al N Livin g Anali Delivery Location:[facility] Comments:FTP Last Filed Vital Signs Vital Sign [...] GYNECOLOGICAL PANEL Timed 07/21/2009 8 :19 AM BEAD WRAPPER from Last 3 Months or Most Recently Relevant to Health Maintenance Results * GYNECOLOGICAL PANEL (07/21/2009 8:19 AM BEAD WRAPPER) CYTOLOGY CYTOPATHOLOGY REPORT [facility] Status: Final Status [id number] CLINICAL INFORMATION Last Date of LMP :07/14/09 Last Pap Date :06/02 Last Pap Result :WNL [place]/Bx done today :No HPV Request :HPV if [...] malignant lesions. COLLECTED:07/21/09 ACCESSIONED: 07/23/09 SIGNED: 07/25/09 [facility] PAP [place]DA CODE NIL [facility] 07/21/2009 8:19 AM BEAD WRAPPER 07/23/2009 8:19 AM BEAD WRAPPER september Gaby GONZALEZ PATHOLOGY/CYTOLOGY Final R esult [facility] INTERNAL ZIP [address] [address] from Last 3 Months or Most Recently Relevant to Health Maintenance Insurance [address] [place] [address] [facility] Advance Directives * Full Code (Latest Code Status on File) Date Activated Date Inactivated Comments 10/10/2008 11:15 AM 10/13/2008 1:57 PM * Full Code Date Activated Date Inactivated Comments 10/10/2008 7:29 AM 10/10/2008 11:15 AM Care Teams Applicator Sprayer Relationship Specialty Start Date End Date Lety Gaines PA-C [address] [place] [address] PCP - General Emergency Medicine 07/01/22
--- OUTSIDE RECORDS SUMMARY | 2024-08-11 23:37 | XMS_ITS | Clinical Summary ---
Author Organization [employer] Address [address] [place] [address] Care Team Providers Care District Sales Representative Name Role Phone Unavailable Primary Care Provider [...] for each transition of care or referral. [facility] [facility] Allergies Active Allergy Reactions Criticality Noted Date [...] Comments Blood Pressure 146/99 05/16/2023 8:40 AM ENVIRONMENTAL ISSUES INSTRUCTOR Pulse 72 05/16/2023 8:40 AM ENVIRONMENTAL ISSUES INSTRUCTOR Temperature 36.8 C (98.2 F) 05/16/2023 8:40 AM ENVIRONMENTAL ISSUES INSTRUCTOR Respiratory Rate 16 05/16/2023 8:40 AM ENVIRONMENTAL ISSUES INSTRUCTOR Oxygen Saturation 99% 05/16/2023 8:40 AM ENVIRONMENTAL ISSUES INSTRUCTOR Inhaled Oxygen Concentration - - Weight - [...] (Work) [address] [place] [address] [facility] (Home) [address] [place] [address] [facility] (Home) [address] [place] [address] [facility]
--- OUTSIDE RECORDS SUMMARY | 2024-08-11 23:37 | XMS_ITS | Clinical Summary ---
Author Organization [place] Address [address] [facility] [place] [address] Care Team Providers Care Caul Puller Name Role Phone Beth Latham MD Primary Care Provider [phone] Beth Latham MD Unavailable [phone] Allergies Active Allergy Reactions Criticality Noted Date [...] on file Legal Sex Female 3:31 AM KNOWLEDGE MANAGEMENT CONSULTANT Gender Identity Not on file Sexual Orientation [...] BILATERAL W/ GERBER Routine 08/17/2021 1:53 PM KNOWLEDGE MANAGEMENT CONSULTANT Visit for screening mammogram LIPID REFLEX TO DIRECT LDL PANEL Routine 07/29/2020 9:38 AM KNOWLEDGE MANAGEMENT CONSULTANT CARDIOVASCULAR SCREENING; LDL GOAL LESS THAN 130 [...] and gender (Steffany et al., NEJM, DOI: 10.1056/[id number]) Blood STRUCTURE OF RIGHT UPPER LIMB / Unknown Venipuncture / Unknown 11/04/2021 11:47 AM CDT 11/04/2021 11:57 AM CDT us Wm Deleon MD LAB - BLOOD ORDERABLES Final Result LABORATORY [facility] [address] (1st floor, no room number) [place] [address], [facility] [phone] * MA Screen Bilateral w/Gerber (08/17/2021 1:53 PM KNOWLEDGE MANAGEMENT CONSULTANT) Anatomical Region Laterality Modality Breast Bilateral Mammography Narrative 08/17/2021 2:53 PM KNOWLEDGE MANAGEMENT CONSULTANT BILATERAL FULL FIELD DIGITAL SCREENING MAMMOGRAM WITH [...] to direct LDL Fasting (07/29/2020 9:38 AM KNOWLEDGE MANAGEMENT CONSULTANT) Cholesterol 168 <200 mg/dL 07/29/2020 1:37 PM KNOWLEDGE MANAGEMENT CONSULTANT [facility] Triglycerides 106 <150 mg/dL 07/29/2020 1:37 PM KNOWLEDGE MANAGEMENT CONSULTANT [facility] Comment:Fasting specimen HDL Cholesterol 46(L) >49 mg/dL 1:38 PM KNOWLEDGE MANAGEMENT CONSULTANT [facility] LDL Cholesterol Calculated 101(H) <100 mg/dL 07/29/2020 1:38 PM KNOWLEDGE MANAGEMENT CONSULTANT [facility] Comment: Above desirable: 100-129 mg/dl Borderline High: 130-159 mg/dL High: 160-189 mg/dL Very high: >189 mg/dl Non HDL Cholesterol 122 <130 mg/dL 07/29/2020 1:38 PM KNOWLEDGE MANAGEMENT CONSULTANT [facility] Blood specimen (specimen) 07/29/2020 9:38 AM KNOWLEDGE MANAGEMENT CONSULTANT 07/29/2020 9:39 AM KNOWLEDGE MANAGEMENT CONSULTANT us Beth Latham MD LAB - BLOOD ORDERABLES Fi nal Result [facility] [address] [place] [address] * ABSTRACT PAP-NO CHARGE (07/21/2009) Impressions [facility] - 07/21/2009 Pap done 07/21/2009 per transferred records - us Patient Reported LAB - HIM EXTERNAL RESULT Final Result [facility] from Last 3 Months or Most Recently Relevant to Health Maintenance [place] Care Teams Caul Puller Relationship Specialty [place] [address] [address] [place] [address] PCP - General Internal Medicine 07/28/20 [place] [address] [place] [address] Assigned PCP 08/10/20
--- OUTSIDE RECORDS SUMMARY | 2024-08-11 23:37 | XMS_ITS | Encounter Summary ---
Author Organization [place] Address [address] [place] [address] Care Team Providers Care Wire Charger Name Role Phone Nona David PA-C Primary Care Provi ariel Ugo Prado MD Unavailable [phone] Sly Ivy MD Unavailable Beth Latham MD Primary Care Provider [phone] Beth Latham MD Unavailable [phone] Reason for Visit * Reason Comments Sleep Problem Encounter Details Date Type Department Care Team (Late st Contact Info) Description 03/18/2020 [facility] [address] [address] Sly Ivy MD [address] [address] EMMIE (obstructive sleep apnea) (Primary [...] on file Legal Sex Female 3:31 AM GROOMING ASSISTANT Gender Identity Not on file Sexual Orientation Not on file documented as of this encounter Plan of Treatment Not on file documented as of this encounter Visit Diagnoses Diagnosis EMMIE (obstructive sleep apnea)- Primary Obstructive sleep apnea (adult) (pediatric) documented in this encounter Additional Health Concerns Infection Onset Date Last Indicated Resolved Time Rule Out COVID-19 07/15/2020 07/15/2020 07/15/2020 2:35 PM GROOMING ASSISTANT Rule Out COVID-19 11/04/2021 11/04/2021 11/04/2021 12:33 PM CDT COVID-11/04/2021 11/04/2021 11/25/2021 11:3 9 PM CDT Assessment Noted Time PHQ-9 Depression Total Score: 0 05/17/20 10:14 AM GROOMING ASSISTANT documented as of this encounter Care Teams Wire Charger Relationship Specialty Start Date End Date Nona David PA-C PCP - General Physician Thiokol Operator 08/21/18 07/27/20 [place] [address] [place] [address] PCP - General Internal Medicine 07/28/20 Ugo Prado MD [address] [place] [address] Assigned PCP 05/20/19 08/09/20 Sly Ivy MD [address] [place] [address] Assigned Sleep Provider 04/18/20 [place] [address] [place] [place] [address] Assigned PCP 08/10/20 documented as of this encounter
--- OUTSIDE RECORDS SUMMARY | 2024-08-11 23:37 | XMS_ITS | Encounter Summary ---
Author Organization [facility] Address [address] [place] [address] Care Team Providers Care Software Installer Name Role Phone Nona David PA-C Primary Care Provi ariel Nona David PA-C Unavailable [phone] Ugo Prado MD Unavailable [phone] Sly Ivy MD Unavailable Beth Latham MD Primary Care Provider [phone] Beth Latham MD Unavailable [phone] Encounter Details Date Type Department Care Team (Late st Contact Info) Description 10/27/[address] [facility] [address] [place] [phone] Irais Dahl PA-C [address] [place], [place] [id number] [place] [id number] Social History Tobacco Use Types Packs/Day Years Used Date Smoking Tobacco: Never Smokeless Tobacco: Never Alcohol Use Standard Drinks/Week Comments No 0 (1 standard drink = 0.6 oz pur e alcohol) PHQ-2 Answer Date Recorded PHQ-2 Score 0 07/04/2018 Comments No Sex and Gender Information Value Date Recorded Sex Assigned at Not on file Legal Sex Female 3:31 AM REGULATORY COMPLIANCE MANAGER Gender Identity Not on file Sexual Orientation Not on file documented as of this encounter Plan of Treatment Not on file documented as of this encounter Visit Diagnoses Not on filedocumented in this encounter Additional Health Concerns Infection Onset Date Last Indicated Resolved Time Rule Out COVID-19 07/15/2020 07/15/2020 07/15/2020 2:35 PM REGULATORY COMPLIANCE MANAGER Rule Out COVID-19 11/04/2021 11/04/2021 11/04/2021 12:33 PM CDT COVID-19 11/04/2021 11/04/2021 11/25/2021 11:3 9 PM CDT Assessment Noted Time PHQ-9 Depression Total Score: 0 05/17/20 18 10:14 AM REGULATORY COMPLIANCE MANAGER documented as of this encounter Care Teams Software Installer Relationship Specialty Start Date End Date Nona David PA-C PCP - General Physician Freelance Recruiter 08/21/18 07/27/20 [place] [address] [address] [address] PCP - General Internal Medicine 07/28/20 Nona David PA-C [address] [facility] [address] [place] [address] Assigned PCP 05/28/18 05/19/19 Ugo Prado MD [address] [place] [address] Assigned PCP 05/20/19 08/09/20 Sly Ivy MD [address] [place] [address] Assigned Sleep Provider 04/18/20 [place] [address] [address] [address] Assigned PCP 08/10/20 documented as of this encounter
--- OUTSIDE RECORDS SUMMARY | 2024-08-11 23:37 | XMS_ITS | Encounter Summary ---
Author Organization [place] Address [address] [facility] [place] [address] Care Team Providers Care Statistics Manager Name Role Phone Mora Yanes MD Primary Care Provider Unavailable Beth Latham MD Primary Care Provider [phone] Beth Latham MD Unavailable [phone] Nona David PA-C Unavailable [phone] Nona David PA-C Primary Care Provi ariel Nona David PA-C Unavailable [phone] Ugo Prado MD Unavailable [phone] Sly Ivy MD Unavailable Beth Latham MD Primary Care Provider [phone] Beth Latham MD Unavailable [phone] Encounter Details Date Type Department Care Team (Late st Contact Info) Description 12/09/2011 [facility] [address] [address] [place] Caruso Social History Tobacco Use Types Packs/Day Years Used Date Smoking Tobacco: Never Alcohol Use Standard Drinks/Week Comments Not Asked 0 (1 standard drink = 0.6 oz pur e alcohol) Comments Unknown Sex and Gender Information Value Date Recorded Sex Assigned at Not on file Legal Sex Female 3:31 AM NUCLEAR PHYSICS PROFESSOR Gender Identity Not on file Sexual Orientation Not on file documented as of this encounter Plan of Treatment Not on file documented as of this encounter Visit Diagnoses Not on filedocumented in this encounter Additional Health Concerns Infection Onset Date Last Indicated Resolved Time Rule Out COVID-19 07/15/2020 07/15/2020 07/15/2020 2:35 PM NUCLEAR PHYSICS PROFESSOR Rule Out COVID-19 11/04/2021 11/04/2021 11/04/2021 12:33 PM CDT COVID-19 11/04/2021 11/04/2021 11/25/2021 11:3 9 PM CDT documented as of this encounter Care Teams Statistics Manager Relationship Specialty Start Date End Date Mora Yanes MD PCP - General Pediatrics 07/29/11 12/14/11 [place] [address] [place] [address] PCP - General Internal Medicine 12/15/11 08/20/18 [place] [address] [place] [address] PCP - Assigned PCP 01/02/12 05/27/18 Nona David PA-C [address] [place] [address] PCP - Assigned PCP 05/28/18 08/29/18 Nona David PA-C [address] [place] [address] PCP - General Physician Ob/Gyn Physician 08/21/18 07/27/20 [place] [address] [address] [address] PCP - General Internal Medicine 07/28/20 Nona David PA-C [address] [facility] [address] [place] [address] Assigned PCP 05/28/18 05/19/19 Ugo Prado MD [address] [facility] [address] [place], [place] [id number] Assigned PCP 05/20/19 08/09/20 Sly Ivy MD [address] [place] [address] [place] [address] Assigned Sleep Provider 04/18/20 [place] [address] [address] [address] Assigned PCP 08/10/20 documented as of this encounter
--- OUTSIDE RECORDS SUMMARY | 2024-08-11 23:37 | XMS_ITS | Encounter Summary ---
Author Organization [place] Address [facility] [place] [address] Care Team Providers Care Otr Truck Driver Name Role Phone Beth Latham MD Primary Care Provider [phone] Beth Latham MD Unavailable [phone] Encounter Details Date Type Department Care Team [...] on file Legal Sex Female 3:31 AM ARSON AND BOMB INVESTIGATOR Gender Identity Not on file Sexual Orientation Not on file COVID-19 Exposure Response Date Recorded In the last month, have you been in contact with someone who was confirmed or suspected to have Coronavirus / COVID-19? No / Unsure 07/13/2021 11:19 AM ARSON AND BOMB INVESTIGATOR documented as of this encounter Plan of Treatment Not on file documented as of this encounter Visit Diagnoses Not on filedocumented in this encounter Additional Health Concerns Infection Onset Date Last Indicated Resolved Time Rule Out COVID-19 11/04/2021 11/04/2021 11/04/2021 12:33 PM CDT COVID-19 11/04/2021 11/04/2021 11/25/2021 11:3 9 PM CDT Assessment Noted Time PHQ-9 Depression Total Score: 5 07/29/19 21 9:49 AM ARSON AND BOMB INVESTIGATOR documented as of this encounter Care Teams Otr Truck Driver Relationship Specialty [place] [address] [address] [address] PCP - General Internal Medicine 07/28/20 [place] [address] [address] [address] Assigned PCP 08/10/20 documented as of this encounter
[2024-08-11 23:38] VITALS: TEMP 36.7
[2024-08-11] MEDS: KETOROLAC 30 MG/ML inj IVP (23:38)
[2024-08-11] MEDS: 0.9 % SODIUM CHLORIDE 1000 ml 1,000 ML IV (23:39)
[2024-08-11] MEDS: ONDANSETRON 2 MG/ML inj 4 MG IVP (23:39)
[2024-08-11 23:59] LABS: PCR FLU A Negative PCR FLU A (Negative); PCR FLU B Negative PCR FLU B (Negative); PCR RSV Negative PCR RSV (Negative); SARS PCR* Negative SARS-CoV-2 (Negative)
--- NOTE | 2024-08-12 00:47 | PC.NURSE ---
Pt sipping on fluids with family at BS. No c/o or requsts.
[2024-08-12] MEDS: METOCLOPRAMIDE HCL 10 MG in 0.9 % SODIUM CHLORIDE 100 ml 100 ML 306 MG IVPB (01:37)
[2024-08-12] MEDS: 0.9 % SODIUM CHLORIDE 1000 ml 1,000 ML IV (01:37)
[2024-08-12 01:44] VITALS: TEMP 36.7
[2024-08-12 02:56] VITALS: BP 118/78; PULSE 90; RESP 20; TEMP 36.7; O2SAT 99
[2024-08-12 03:57] VITALS: BP 118/78; PULSE 90; RESP 20; TEMP 36.7
== END 2024-08-12 03:57 | disposition home or self-care (01) ==
PROVIDERS: Emergency Provider Family Medicine; PCP Physician Assistant Medical
DX: R11.10 Vomiting, unspecified (principal); R19.7 Diarrhea, unspecified
CPT/HCPCS: 87631; 94761; 96365; 96375; 99284; J1885; J2405; J2765; J7030

== ENCOUNTER 2024-10-26 07:06 | Outpatient (CLI) | payer BC, SELFPAY ==
--- NOTE | 2024-10-26 07:15 | CRLHL7_ITS ---
For Patients: As a result of the Century Cures Act, medical imaging exams and procedure reports are released immediately into your electronic medical record. You may view this report before your referring provider. If you have questions, please contact your health care provider. INDICATION: Left submandibular gland pain. COMPARISON: 08/10/2024. TECHNIQUE: Multiplanar T1, T2 with fat saturation and post gadolinium T1 weighted sequences of soft tissues of the neck. Dotarem 30 cc IV FINDINGS: Normal bilateral parotid glands. Normal bilateral submandibular glands. Specifically, no abnormal enlargement, inflammation, or enhancement of the left submandibular gland is compared to the right. There is no abnormal dilatation of the submandibular duct. Normal thyroid gland. Mildly prominent otherwise normal sized level 2 lymph nodes bilaterally. No enlarged lymph nodes within the remainder the neck bilaterally. Stable 13 mm lymph node in the right parapharyngeal space. No surrounding inflammatory change. Nasopharynx and oropharynx are clear. No inflammation within the paravertebral fat pads are Rich ritual space. Normal thickness of the epiglottis. No mass or asymmetry at the base of tongue. Normal glottis with symmetric vocal cords. Normal alignment of cervical spine. No prevertebral soft tissue swelling. No abnormal enhancement. IMPRESSION: 1. No new adenopathy. Stable mildly prominent but otherwise normal-sized level 2 lymph nodes bilaterally and within the right parapharyngeal space 2. Normal symmetric bilateral submandibular glands. No abnormal enlargement, inflammation, or enhancement of the left submandibular gland. 3. Normal deep soft tissues of the neck 4. No prevertebral soft tissue swelling Dictated by Mayur Llamas MD @ 10/27/2024 9:06:33 AM (Electronically Signed)
== END 2024-10-26 07:07 | disposition home or self-care (01) ==
LOC: MRI 07:07
PROVIDERS: PCP Physician Assistant Medical; Visit Provider Otolaryngology
DX: K11.8 Other diseases of salivary glands (principal)
CPT/HCPCS: 70543; A9575

== ENCOUNTER 2025-06-25 08:08 | Outpatient (CLI) | payer BC, SELFPAY | END 2025-06-25 08:09 | disposition home or self-care (01) | LOC: NFLDREF 07-02 11:36 | PROVIDERS: PCP Physician Assistant Medical; Referring Provider Physician Assistant Medical; Visit Provider Physician Assistant Medical | DX: Z00.00 Encounter for general adult medical examination without abnormal findings (principal); E55.9 Vitamin D deficiency, unspecified; I10 Essential (primary) hypertension; R73.03 Prediabetes; Z79.899 Other long term (current) drug therapy | CPT/HCPCS: 80053; 80061; 82306; 82607; 82728; 84443 ==